=== PATIENT | female | born 1980 | race Caucasian/White ===

== ENCOUNTER 2017-12-13 10:46 | Day surgery (SDC) | payer MEDICAID ==
--- NOTE | 2017-12-07 15:20 | PREOP HISTORY & PHYSICAL ---
DATE OF SERVICE: 12/07/2017 Physician: Sheyla Brenner DO ANTICIPATED ADMISSION: 12/13/2017 IDENTIFICATION: This is a 37-year-old, G2, P2-0-0-2. HISTORY OF PRESENT ILLNESS: The patient is well known to me and underwent a total abdominal hysterectomy with right salpingo-oophorectomy in 2012 secondary to chronic pelvic pain. Pathology showed that she had both endometriosis and adenomyosis. In the more recent past, the patient has been experiencing intermittent abdominal pain of unclear etiology since 2016. The patient states that her pain is mainly in the left lower quadrant and is worsened with activity. She also feels that she has been having another type of pain in the left lower quadrant that trying to "claw its way out." The pain in her pelvic area is described as throbbing and pulsating. She does now, today, notice a cramping-like sensation in her right lower quadrant. Her pain was so bad that on 11/07/[address] [facility] due to the pain. Workup was essentially unremarkable. They did see a 2.1 x 1.6 x 2.1 cm simple cyst on the left adnexa. I discussed with the patient that most likely her pain is due to either endometriosis or adhesions. I discussed with the patient the risks, benefits, alternatives, indications, expectations of diagnostic laparoscopy, possible lysis of adhesion, and ablation or excision of endometrial implants. The patient understood that there were risks of hemorrhage, infection, damage to surrounding organs, as well as the risk of anesthesia. Should heavy bleeding occur around the adnexa, an oophorectomy may need to be performed. However, with an oophorectomy, the patient would be in surgical menopause. Furthermore, if the case was too technically difficult, she may have to have laparoscopy abandoned and proceed to a mini laparotomy. Finally, the patient understands that although surgery for lysis of adhesions or ablation of endometrial implants may be performed, she may not feel any relief of her pain. After all the patient's questions were answered to her satisfaction, she verbalized her desire to proceed with surgery. Consent forms have been signed. The patient otherwise is doing well. She denies any nausea, vomiting, fevers, chills, diarrhea, or constipation. PAST MEDICAL HISTORY 1. Obesity. 2. Asthma. 3. Endometriosis. 4. Arthritis. 5. Bilateral carpal tunnel. 6. Shoulder pain. PAST SURGICAL HISTORY 1. Laminectomy x2 at L4-L5. 2. Bilateral tubal sterilization via laparoscopy. 3. On 07/03/2013, total abdominal hysterectomy, right salpingo-oophorectomy, revealing adenomyosis, as well as endometriosis. ALLERGIES 1. MAINLY TO MORPHINE, IN WHICH SHE HAS HIVES. 2. DILAUDID IN WHICH SHE HAS A HEADACHE AND GRINDS HER TEETH. 3. SHE DOES HAVE SOME SIDE EFFECTS WITH HYDROCODONE AND OXYCODONE WITH RESPECT TO UPSET STOMACH. MEDICATIONS 1. Vitamin D. 2. Natalie 180. 3. Ibuprofen. 4. Vistaril 25. 5. Cyclobenzaprine 5 mg. 6. Pyridium. 7. Amitriptyline 10 mg. 8. Albuterol 90 mcg. SOCIAL HISTORY: She denies any current tobacco use, but she did quit a 15-year history of tobacco use in 2014. The patient does consume alcohol on a rare basis, and she does consume marijuana on an occasional basis. Significant other is Matt; and she has sons Damian and Dmitri. PAST OBSTETRICAL HISTORY: Two deliveries. PAST GYNECOLOGICAL HISTORY: Status post bilateral tubal sterilization. Pap smears have been within normal limits. She does recall a history of gonorrhea, with chronic pelvic pain since February 2009. The patient has been on multiple doses of Depot Lupron in order to work up her chronic pelvic pain prior to her hysterectomy. Her most recent Pap smear on 04/01/2011 was negative for the Pap smear, as well as the high risk HPV probe. Pap smears on 02/09/2009, 2009 and 06/18/2010 have all been nil. The patient currently does not have any PMS symptoms with ovulation. FAMILY HISTORY: There is a significant maternal and paternal history of breast carcinoma. She does not know much history, but is only aware that her paternal grandmother was diagnosed with breast cancer in her 80s. REVIEW OF SYSTEMS: Negative unless otherwise stated. PHYSICAL EXAMINATION VITAL SIGNS: Height is 69 inches. Blood pressure initially 148/100 and then 122/96. BMI is 35.4. GENERAL: The patient is a well-developed, well-nourished, female, in no apparent distress. She is alert and oriented x3. The patient is very pleasant to speak to. The patient is very reasonable. HEENT: Within normal limits. She does wear glasses. CARDIOVASCULAR: Rate is regular. No murmurs or rubs. PULMONARY: Lungs are clear to auscultation bilaterally. ABDOMEN: Soft, nontender. No masses, rebound, rigidity or guarding. She does have a well healed Pfannenstiel skin incision. There is a faint scar in her left lower quadrant from her tubal sterilization. DIAGNOSTIC DATA: The 11/07/2017 [facility] pelvic ultrasound revealed a surgically absent uterus, right adnexa, absent left adnexa measuring 3.9 x 2.3 x 2.6 cm. Again, there is a 2.1 x 1.6 x 2.1 cm simple cyst. White count is 8.8, hemoglobin and hematocrit of 14.8 and 43.1 respectively, platelets 272. Creatinine 0.7. Most recent CT abdomen and pelvis on 07/29/2013 for left flank pain. She has a left ovarian cyst measuring 4.5 x 3.7 cm. No extraluminal fluid collections are identified in the abdomen or pelvis. Subcutaneous fluid collection seen at the pelvis at the site of prior incision. This measures 13.8 x 3.8 x 5.9 cm and probably represents postoperative hematoma or seroma. Degenerative changes seen in the lumbar spine, especially at L4 to L5 and L5 to S1. ASSESSMENT 1. A 37-year-old G2, P2-0-0-2. 2. Chronic pelvic pain. 3. Significant history of nausea and vomiting during postop recovery. PLAN 1. We will proceed to a 12/13/2017 diagnostic laparoscopy with possible lysis of adhesions and removal of endometrial implant. 2. Plan to give the patient scopolamine 1.5 mg x1 behind her ear as soon as she presents to Med/Surg. 3. Postoperative medications have been given to her specifically for Zofran 4 mg, sent to [facility] in [place], [place], as well as a handwritten prescription for oxycodone 5 mg #20 tablets. 4. The patient is to see me at [facility] in 2 weeks for a routine postoperative visit. cc: SINAI Hurd TD: 12/07/2017 14:55 [facility]
[~2017-12-13 10:46] MED LIST: CELECOXIB 100 MG CAPSULE PO ONE; SCOPOLAMINE PATCH TOP ONE
[2017-12-13 10:59] VITALS: BP 122/70
[2017-12-13] MEDS ORDERED: LACTATED RINGERS 1,000 ML IV ONE ×4 (11:11→15:29)
[2017-12-13] MEDS ORDERED: LIDOCAINE MPF 1%-EPI 1:200000 30 ML VIAL ONE (12:25)
[2017-12-13] MEDS ORDERED: BUPIVACAINE 0.5% PF 10 ML VIAL ONE (12:49)
[2017-12-13] MEDS ORDERED: LIDOCAINE-MPF 2% 5 ML VIAL IM ONE (13:10)
[2017-12-13] MEDS ORDERED: KETOROLAC 30 MG/ML VIAL IVP ONE (13:10)
[2017-12-13] MEDS ORDERED: ACETAMINOPHEN 1,000 MG/100 ML 100 ML IV ONE (13:10)
[2017-12-13] MEDS ORDERED: fentaNYL 250 MCG/5 ML VIAL IVP ONE (13:10)
[2017-12-13] MEDS ORDERED: ONDANSETRON 4 MG/2 ML VIAL IVP ONE (13:10)
[2017-12-13] MEDS ORDERED: MIDAZOLAM 2 MG/2 ML VIAL IVP ONE (13:10)
[2017-12-13] MEDS ORDERED: ROCURONIUM 50 MG/5 ML VIAL IVP ONE (13:10)
[2017-12-13] MEDS ORDERED: DEXAMETHASONE 4 MG/ML VIAL IVP ONE (13:10)
[2017-12-13] MEDS ORDERED: PROPOFOL 200 MG/20 ML VIAL IVP ONE (13:10)
[2017-12-13] MEDS ORDERED: LIDOCAINE 1%-EPI 1:100000 20 ML MDV SUBQ ONE (14:54)
[2017-12-13] MEDS ORDERED: GENTAMICIN 80 MG/2 ML VIAL ONE (14:56)
[2017-12-13] MEDS ORDERED: GENTAMICIN 80 MG/2 ML VIAL IL ONE (14:58)
[2017-12-13] MEDS ORDERED: BUPIVACAINE 0.5% PF 10 ML VIAL IM ONE (14:58)
--- NOTE | 2017-12-13 15:40 | OPERATIVE REPORT ---
Operative Report - General Planned Procedure: Diagnostic laparoscopy, probable lysis of adhesions, possible left oophorec Pre-Op Diagnosis: LLQ pain; status post AMBREEN RSO for endometriosis/adenomyosis Procedure Performed: Diagnostic laparoscopy, appendectomy, lysis of extensive adhesions, cystoscopy Post Op Diagnosis: Extensive & dense abdominal and pelvic adhesions; edematous appendix; - Procedure Note Primary Surgeon: Luis Collier MD Secondary Surgeon: Luis Rivera MD Anesthesia Provider: Jeremie Puri, certified nurse image consultant Anesthesia Technique: General ET tube Pathology: Appendix sent IV Fluids (mL): 2,400 Estimated Blood Loss (mL): 70 Urine Output (mL): 70 Drain/Tube Type: Other (Finn) Complications: None
[2017-12-13] MEDS ORDERED: SODIUM CHLORIDE 0.9% 50 ML IV ONE ×2 (16:14→16:37)
[2017-12-13] MEDS ORDERED: ONDANSETRON 4 MG/2 ML VIAL ONE (16:14)
[2017-12-13] MEDS ORDERED: PROMETHAZINE 25 MG/1 ML VIAL ONE ×2 (16:21→16:42)
[2017-12-13] MEDS ORDERED: ACETAMINOPHEN 1,000 MG/100 ML 0 ML IV ONE (16:36)
[2017-12-13] MEDS ORDERED: ONDANSETRON 4 MG/2 ML VIAL IVP PRN (18:19)
[2017-12-13] MEDS: ACETAMINOPHEN 1,000 MG/100 ML 100 ML IV SCH (19:15)
--- NOTE | 2017-12-13 19:35 | OPERATIVE REPORT ---
DATE OF SERVICE: 12/13/2017 Physician: Luis Collier MD PREOPERATIVE DIAGNOSES 1. Left lower quadrant pain predominant, right lower quadrant pain and bladder pain with urgency. 2. History of endometriosis. 3. Status post total abdominal hysterectomy, right salpingo-oophorectomy. 4. Morbid obesity. POSTOPERATIVE DIAGNOSES 1. Extensive and dense abdominal and pelvic adhesions involving small bowel, large bowel, pelvic sidewall and anterior abdominal wall. 2. Edematous appendix, suspicious for endometriosis. 3. No endometriosis found. NAME OF PROCEDURE 1. Diagnostic laparoscopy. 2. Appendectomy. 3. Lysis of extensive and dense adhesions of the abdomen and pelvis. 4. Cystoscopy. SURGEON: Luis Collier MD, FACOG SECOND SURGEON: Luis Hurt MD, FACOG CLOTH BRUSHING AND SUEDING SUPERVISOR 1. Alka Puri, Certified Nurse Bowling Alley Mechanic. 2. Ester Proctor, Certified Nurse Bowling Alley Mechanic. ANESTHESIA TYPE: General with ET tube. TOTAL BLOOD LOSS: 70 mL. SPECIMENS: None. TOTAL IV FLUIDS: 2400 mL. URINE OUTPUT: 400 mL, clear. FINDINGS: The patient is morbidly obese with a small pannus and a short waist line. There is a well-healed transverse hysterectomy incision. External genitalia have no apparent lesions. No abnormal changes of BUS area. There is no significant prolapse. Cervix and uterus are surgically absent. Rectovaginal exam was done that found no rectovaginal nodules. There may have been a small enterocele. Laparoscopy finds a dense curtain of omental & bowel adhesions, extending down below the hysterectomy scar. There were only 2 adhesion-free areas above the symphysis and slightly right of the midline and the Lateral left lower quadrant. The adhesions were quite dense and involve the rectal colon and sigmoid colon. The colon was pasted against the left pelvic sidewall. This mass of adhesions was explored to find the left ovary, which was not uncovered. There were fatty adhesions on the right side as well that extended up to the abdominal wall. In essence, the abdomen was socked in by a mat of anterior adhesions. Some adhesions tacked small bowel onto the left pelvic brim. The appendix was edematous and bloated in appearance. There was no inflammation. Appearance was suspicious for adenomatous change or endometriosis, prompting removal. The upper abdomen above the umbilicus was fairly adhesion-free. The cul-de-sac, anterior compartment and ovarian fossae were inspected and no endometriosis was found. Cystoscopic inspection of the bladder finds 2 open ureters. There is ecchymosis on the bladder dome anteriorly, probably secondary to the lysis of the extensive adhesions that were adhered to it. There were no obvious bladder punctures or tumors. Photos were taken. TECHNIQUE: Prior to the surgery, I met the patient and her in same-day surgery. We discussed her symptoms, and I marked the areas that were painful to her with a marking pen. She did have moderate tenderness in LLQ & less so RLQ, as well as the bladder. We reviewed the risks and benefits of surgery, inclusive of blood loss, transfusion, damage to intestines, urinary tract, inability to fix a diagnosis and anesthesia reaction and on rare occasions, . All questions were answered. We added cystoscopy because of the bladder tenderness and her complaints of bladder pain on emptying and urgency. The patient was brought to the operating room and placed in the supine position on the OR table. She was uneventfully induced and intubated. She was then moved to the low dorsal lithotomy position on [facility]. Exam under anesthesia was accomplished. She was prepped and draped in the customary sterile fashion. Timeout briefing was done per protocol. A small incision was placed under the umbilical skin fold, and under direct visualization, a 5 mm Visiport trocar was placed into the abdomen. The abdominal wall was very stiff and fibrous. The peritoneal cavity was insufflated with CO2 gas at 12 mm of pressure. Examination found a wall of adhesions and a small space in which the scope was advanced down to the area of the pubes. There was a small adhesion-free patch slightly above the pubic bone. A 5 mm trocar was then placed under direct visualization. Scar tissue was very dense and the trocar did not exit, but rather was in the fatty tissue and adhesions. A second trocar then was placed slightly medial to this under direct visualization. This trocar gave functional access but abutted the inferior portion of the adhesion mat. In a tedious fashion, the lower portion of the anterior wall adhesions were lysed with LigaSure & metzenbaum scissors. Enough space was developed to visualize the left lower quadrant, an adhesion-free space was identified. Under direct visualization, a bariatric 5 mm trocar was placed. This was used for visualization. Using a LigaSure, the lower portion of the adhesion mat was lysed away from the abdominal wall. The previous midline trocar fell away from the fatty adhesions and had been preperitoneal. Trocar was removed. Next, a bariatric right lower quadrant 5 mm trocar was placed. We continued lysis of adhesions until the anterior mat was completely mobilized. Attention then turned to the left ovarian fossa and colon. The colon was matted against the pelvic sidewall. We placed the colon on tension, and using a combination of LigaSure and laparoscopic Metzenbaum scissors, the colon was mobilized carefully. For a portion against the left pelvic sidewall, the dissection was retroperitoneal. There was a great deal of preperitoneal & mesenteric fat. We mobilized the colon completely but could not find the left ovary. We believed it was contained in the mesenteric fat of the sigmoid colon. The appendix was visualized and appearance prompted removal. The right lower quadrant 5 mm port was exchanged for a 10 mm. A laparoscopic stapler 45 mm was inserted into the abdomen. The base of the appendix was identified, clamped, and the stapler fired. To include the mesentery, a second firing of the stapler was necessary. Using catch bag, the appendix was removed. We rinsed the area of dissection and appendectomy several times to ensure that it was intact and hemostatically secure. The abdominal cavity was doubly lavaged with warm normal saline and clots evacuated. All operative sites were inspected and secured. We chose not to continue dissection into the mesentery of the rectal and sigmoid colon due to dangers of inadvertently transecting mesenteric vessels. The 10 mm right lower quadrant port was closed with a Ralph Little laparoscopic closure device using 0 Vicryl. The abdomen was instilled with 500 mL of warm normal saline with 80 mg of gentamicin and 10 mg of Marcaine. All excess gas was then vented. The trocar sleeves were pulled under direct visualization. Skin was closed with subcuticular stitches of 4-0 Monocryl and dressed with Dermabond. At this point, we turned to cystoscopy. A 70-degree cystoscopic lens was used. The bladder was insufflated with sterile normal saline and photographed. There were no lesions requiring biopsy. At this point, the bladder was drained and Finn replaced. The patient received 30 mg of Toradol. She was aroused from general anesthesia and taken to the recovery room in stable condition. Intraoperative events were reviewed with the patient and her family. For pain & nausea control, she will remain overnight. Do not anticipate the patient to stay more than 72 hours. This is not an observation, but extended stay. TD: 12/13/2017 19:34 [email or web address]
[2017-12-13] MEDS: KETOROLAC 30 MG/ML VIAL IVP SCH (20:00)
[2017-12-13] MEDS ORDERED: AMITRIPTYLINE 10 MG TABLET PO SCH (23:45)
[2017-12-14] MEDS: ACETAMINOPHEN 1,000 MG/100 ML 100 ML IV SCH ×2 (00:10→06:54)
[2017-12-14] MEDS ORDERED: SODIUM CHLORIDE FLUSH 0.9% 10 ML SYRINGE ONE ×6 (00:13→11:48)
--- NOTE | 2017-12-14 02:15 | DISCHARGE SUMMARY ---
Physician: Luis Collier MD DATE OF ADMISSION: 12/13/2017 DATE OF DISCHARGE: 12/14/2017 SUMMARY DIAGNOSES 1. Extensive and dense abdominal and pelvic adhesions, including small bowel, large bowel, pelvic sidewall, and anterior abdominal wall. 2. History of endometriosis. 3. Status post abdominal hysterectomy, right salpingo-oophorectomy. 4. Morbid obesity. 5. No endometriosis found. PROCEDURES 1. Diagnostic laparoscopy. 2. Appendectomy. 3. Lysis of extensive and dense adhesions of the abdomen and pelvis. 4. Cystoscopy. COMPLICATIONS: None. HISTORY: Patient has predominantly left lower quadrant pain with some right upper quadrant and bladder pain as well. She has extensive surgical history as outlined in Dr. Brenner's admission H and P. At the time of admission, I reviewed the H and P, patient's symptoms, and reexamined the patient in preanesthesia holding area. Cystoscopy was added to the operative consent. HOSPITAL COURSE: Patient underwent her diagnostic laparoscopy using bariatric instruments. The abdominal wall was very stiff, and there was a thick and dense mat of adhesions in the lower abdomen. Methodical method was used to eventually lyse these adhesions. Left ovary was never clearly visualized. We dissected the rectal and sigmoid colon off of the left pelvic side wall. I believed the ovary to be buried in mesenteric fat. Cystoscopy found ecchymosis from extensive dissection but no openings. Both ureters worked well. Total blood loss was 70 mL, and the patient went to the recovery room in stable condition. In Recovery, she began to retch, which accelerated abdominal pain. She began a retch and pain cycle that was difficult to break. A combination of Zofran and Compazine and Phenergan were used to eventually control the retching. She is very sensitive to narcotics, and so IV acetaminophen and Toradol were used. She was moved to extended stay observation. Once in her room, her nausea and pain gradually subsided. She had her Finn removed.She received supportive care. Patient's diet was gradually advanced through the day. At the time of discharge, complete wound care, followup, and warning sign instructions were given. DISCHARGE MEDICATIONS 1. Motrin 600 mg every 6 hours. 2. Hydrocodone 5 mg every 4 hours p.r.n. breakthrough pain. 3. Colace 250 mg b.i.d. 4. The patient will resume her normal medications, inclusive of amitriptyline. TD: 12/14/2017 02:14 MTDOsmel
[2017-12-14] MEDS: KETOROLAC 30 MG/ML VIAL IVP SCH ×2 (02:35→11:26)
[2017-12-14] MEDS: oxyCOD/ACETAMIN 5 MG/325 MG TABLET PO PRN ×3 (03:54→12:21)
--- NOTE | 2017-12-14 12:34 | Discharge Plan ---
Discharge Plan Disposition: 01 Home, Self Care Condition: Stable Diet: Regular Activity Restrictions: Activity as Tolerated Shower Restrictions: No Driving Restrictions: No No Smoking: If you smoke, Please STOP! Call for help.
== END 2017-12-14 13:45 | disposition home or self-care (01) ==
LOC: SDS 10:46 → OBS 16:30 → SDS 12-14 13:45
PROVIDERS: ATTEND Obstetrics & Gynecology
PROC: 0TJB8ZZ Inspection of Bladder, Via Natural or Artificial Opening Endoscopic (ICD-10-PCS; 2017-12-13)
PROC: 0DTJ4ZZ Resection of Appendix, Percutaneous Endoscopic Approach (ICD-10-PCS; principal; 2017-12-13 11:45)
DX: R10.31 Right lower quadrant pain (principal); K66.0 Peritoneal adhesions (postprocedural) (postinfection); R10.32 Left lower quadrant pain; E66.01 Morbid (severe) obesity due to excess calories; J45.909 Unspecified asthma, uncomplicated; Z68.35 Body mass index [BMI] 35.0-35.9, adult
CPT/HCPCS: 44970; 49329; 52000; 88304; A9270; J0131; J1580; J3010; J3490; J7120

== ENCOUNTER 2018-01-04 12:58 | Outpatient (CLI) | payer MEDICAID ==
--- NOTE | 2018-01-04 17:19 | Ultrasound Report ---
RIGHT BREAST ULTRASOUND: 01/04/2018 CLINICAL INDICATION: Palpable abnormality outer right breast. TECHNIQUE: Real-time scanning was performed with electronics parts sales representative static images obtained. FINDINGS: Ultrasound of the palpable abnormality identified by the patient was performed. At this site, there is a 1.8 x 1.5 x 0.7 cm lipoma. No sonographically suspicious findings are seen. IMPRESSION: SIMPLE LIPOMA, ACCOUNTING FOR THE PALPABLE ABNORMALITY. RECOMMENDATION: Routine annual screening, to commence at age 40, unless otherwise clinically indicated. BIRADS category 2 benign findings. TD: 01/04/2018 17:17
--- NOTE | 2018-01-04 17:25 | Mammography Report ---
DIAGNOSTIC BILATERAL MAMMOGRAM: 01/04/2018 CLINICAL INDICATION: A 37-year-old with palpable abnormality right breast. COMPARISON: 02/27/2014 FINDINGS: Bilateral CC and MLO views, right true lateral view. A marker was placed at the site of palpable abnormality identified by the patient. FINDINGS: The breasts again demonstrate scattered fibroglandular densities bilaterally. A sebaceous cyst is again noted in the right lower outer posterior breast. No mammographic abnormality is appreciated at the site of palpable abnormality in the right upper outer central breast. No suspicious masses, clustered microcalcifications, or regions of architectural distortion are identified. Please also refer to right breast ultrasound of the same day. IMPRESSION: BENIGN FINDINGS. RECOMMENDATION: Routine annual screening to commence at age 40, unless otherwise clinically indicated. BIRADS CATEGORY 2 BENIGN FINDINGS. STANDARD QUALIFYING STATEMENTS: 1. This examination was reviewed with the aid of Computer-Aided Detection (CAD). 2. A negative or benign imaging report should not delay biopsy if clinically suspicious findings are present. Consider surgical consultation if warranted. More than 5% of cancers are not identified by imaging. 3. Dense breasts may obscure an underlying neoplasm. TD: 01/04/2018 17:23
== END 2018-01-04 12:59 | disposition home or self-care (01) ==
LOC: DI 12:58
PROVIDERS: ATTEND Obstetrics & Gynecology
DX: D17.1 Benign lipomatous neoplasm of skin and subcutaneous tissue of trunk (principal)
CPT/HCPCS: 76642; 77066

== ENCOUNTER 2018-02-05 15:22 | Emergency (ER) | payer MEDICAID ==
[2018-02-05 16:14] LABS: BILIRUBIN,URINE NEGATIVE (NEGATIVE); CLARITY,URINE CLEAR (CLEAR); GLUCOSE, URINE (UA) NEGATIVE (NEGATIVE); KETONES,URINE (UA) NEGATIVE (NEGATIVE); LEUKOCYTE ESTERASE, URINE NEGATIVE (NEGATIVE); NITRITE,URINE NEGATIVE (NEGATIVE); OCCULT BLOOD,URINE TRACE-INTA (NEGATIVE); PROTEIN,URINE NEGATIVE (NEGATIVE); UROBILINOGEN,URINE 0.2 (NORMAL) E.U./dL (NORMAL)
[2018-02-05 16:57] LABS: BASOPHILS # (AUTO) 0.1 10^3/uL (0.0-0.1); BASOPHILS % (AUTO) 0.8 %; EOSINOPHILS # (AUTO) 0.3 10^3/uL (0.0-0.7); EOSINOPHILS % (AUTO) 2.7 %; HGB - HEMOGLOBIN 14.8 g/dL (12.0-16.0); LYMPHOCYTES # (AUTO) 2.7 10^3/uL (1.5-3.5); LYMPHOCYTES % (AUTO) 25.6 %; MEAN CORPUSCULAR HEMOGLOBIN 30.9 pg (27.0-31.0); MEAN CORPUSCULAR HGB CONC 33.7 g/dL (32.0-36.0); MEAN CORPUSCULAR VOLUME 91.7 fL (81.0-99.0); MEAN PLATELET VOLUME 7.7 fL (7.9-10.8); MONOCYTES # (AUTO) 0.6 10^3/uL (0.0-1.0); MONOCYTES % (AUTO) 5.4 %; NEUTROPHILS # (AUTO) 6.9 10^3/uL (1.5-6.6); NEUTROPHILS % (AUTO) 65.5 %; PLT - PLATELET COUNT 313 10^3/uL (130-450); RED BLOOD COUNT 4.79 10^6/uL (4.20-5.40); RED CELL DISTRIBUTION WIDTH 13.2 % (12.0-15.0); WHITE BLOOD COUNT 10.6 x10^3/uL (4.8-10.8)
--- NOTE | 2018-02-05 16:59 | ED Physician Documentation ---
PD HPI ABD PAIN - Stated complaint Stated Complaint: ABD PX - Chief complaint Chief Complaint: Abd Pain - History obtained from History obtained from: Patient - History of Present Illness Timing - onset: Last night Timing - duration: Days (1) Timing - details: Abrupt onset, Still present Quality: Aching, Sharp, Pain Location: LLQ Radiation: No: Lower back, Left flank Improved by: No: Eating, Position Worsened by: Moving, Position, Palpation. No: Eating Associated symptoms: Nausea, Vomiting. No: Fever Similar symptoms before: No diagnosis Recently seen: Surgery (laparoscopy 2 months ago for similar pains and had a lot of adhesions. These were taken down and did tear loose some structures) Review of Systems Constitutional: denies: Fever, Chills, Myalgias Nose: denies: Rhinorrhea / runny nose, Congestion Throat: denies: Sore throat Respiratory: denies: Cough : reports: Other (pelvic pains left lower for months) PD PAST MEDICAL HISTORY - Past Medical History Cardiovascular: None Respiratory: Asthma Endocrine/Autoimmune: None GI: GERD : Kidney stones HEENT: Chronic vision loss, Chronic hearing loss Psych: Depression, Anxiety, Panic attacks, Claustrophobia Musculoskeletal: Osteoarthritis, Fibromyalgia, Scoliosis, Chronic back pain, Other Derm: None - Past Surgical History Past Surgical History: Yes General: Other Ortho: 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, Hysterectomy, Oophrectomy HEENT: Myringotomy (tubes), Tonsil/Adenoidectomy - Present Medications Home Medications: Ambulatory Orders Medication Instructions Recorded Confirmed Albuterol Sulfate [Proair Hfa 1 - 2 puffs INH Q4H PRN 12/07/17 12/13/17 Inhaler] Amitriptyline HCl 30 mg PO DAILY PM 12/07/17 12/13/17 Cyclobenzaprine [Flexeril] 10 mg PO DAILY 12/13/17 12/13/17 Dexamethasone [Decadron] 4 mg PO DAILY #5 tablet 02/05/18 Naproxen 375 mg PO BID #20 tablet 02/05/18 Ondansetron Odt [Zofran] 4 mg TL Q6H PRN #15 tablet 02/05/18 oxyCODONE [Roxicodone] 5 mg PO Q4-6H PRN #20 tablet 02/05/18 - Allergies Allergies/Adverse Reactions: Allergies Allergy/AdvReac Type Severity Reaction Status Date / Time morphine AdvReac Hives Verified 02/05/18 15:32 - Social History Does the pt smoke?: No Smoking Status: Never smoker Does the pt drink ETOH?: Yes Does the pt have substance abuse?: No - Immunizations Immunizations are current?: No Immunizations: TDAP >10years/unknown - POLST Patient has POLST: No PD ED PE NORMAL - Vitals Vital signs reviewed: Yes - General General: Alert and oriented X 3, Well developed/nourished - HEENT HEENT: Pharynx benign - Neck Neck: Supple, no meningeal sign, No bony TTP, No adenopathy, Thyroid normal, No bruit - Cardiac Cardiac: RRR, No murmur - Respiratory Respiratory: Clear bilaterally - Derm Derm: Normal color, Warm and dry, No rash - Extremities Extremities: No deformity, No tenderness to palpate, Normal ROM s pain, No edema , No calf tenderness / cord - Neuro Neuro: Alert and oriented X 3, No motor deficit, Normal speech Results - Vitals Vitals: Oxygen O2 Source Room air - Labs Labs: Laboratory Tests 02/05/18 02/05/18 02/05/18 16:00 16:15 16:15 WBC 10.6 RBC 4.79 Hgb 14.8 Hct 44.0 MCV 91.7 MCH 30.9 MCHC 33.7 RDW 13.2 Plt Count 313 MPV 7.7 L Neut # 6.9 H Lymph # 2.7 [place] # 0.6 Eos # 0.3 Baso # 0.1 Absolute Nucleated RBC 0.01 Nucleated RBC % 0.1 Sodium 137 Potassium 3.8 Chloride 101 Carbon Dioxide 26 Anion Gap 10.0 BUN 11 Creatinine 0.8 Estimated GFR (MDRD) 81 L Glucose 88 Calcium 9.1 Total Bilirubin 0.7 AST 26 ALT 22 Alkaline Phosphatase 50 Total Protein 7.9 Albumin 4.5 Globulin 3.4 Albumin/Globulin Ratio 1.3 Lipase 23 Urine Color YELLOW Urine Clarity CLEAR Urine pH 5.0 Ur Specific [place] 1.010 Urine Protein NEGATIVE Urine Glucose (UA) NEGATIVE Urine Ketones NEGATIVE Urine Occult Blood TRACE-INTA Urine Nitrite NEGATIVE Urine Bilirubin NEGATIVE Urine Urobilinogen 0.2 (NORMAL) Ur Leukocyte Esterase NEGATIVE Ur Microscopic Review NOT INDICATED Urine Culture Comments NOT INDICATED PD MEDICAL DECISION MAKING - ED course Complexity details: reviewed old records (recent laroscopy with lysis of adhesions, but long enough ago to really out of typical post op infections/ problems. No signs of infection. CT showing a lot of adhesions. ), re-evaluated patient, considered differential, d/w patient Departure - Departure Disposition: 01 Home, Self Care Clinical Impression: Abdominal pain, left lower quadrant, Lower abdominal adhesions Condition: Stable Record reviewed to determine appropriate education?: Yes Instructions: ED Abdominal Pain Unkn Cause Follow-Up: Chiquita Alfaro PA-C [Primary Care Provider] - Sheyla Brenner DO [Provider Admit Priv/Credential] - Prescriptions: Dexamethasone [Decadron] 4 mg PO DAILY #5 tablet Naproxen 375 mg PO BID #20 tablet Ondansetron Odt [Zofran] 4 mg TL Q6H PRN #15 tablet PRN Reason: Nausea / Vomiting oxyCODONE [Roxicodone] 5 mg PO Q4-6H PRN #20 tablet PRN Reason: Pain Comments: Presume the pain your having is from adhesions and inflammation similar to what they found on the scope a month and a half ago. Use naproxen 375 mg twice daily for 7-10 days. Decadron also for inflammation daily for 5 days. Add ondansetron if needed for nausea and oxycodone for pain. Follow-up with Dr. Stoner, call this week for an appointment. Discharge Date/Time: 02/05/18 19:21
[2018-02-05 17:09] LABS: ALBUMIN 4.5 g/dL (3.2-5.5); ALBUMIN/GLOBULIN RATIO 1.3 (1.0-2.2); BILIRUBIN,TOTAL 0.7 mg/dL (0.2-1.0); CALCIUM 9.1 mg/dL (8.5-10.3); CREATININE 0.8 mg/dL (0.4-1.0); TOTAL PROTEIN 7.9 g/dL (6.7-8.2)
[2018-02-05] MEDS ORDERED: KETOROLAC 60 MG/2 ML VIAL IVP STA (17:22)
[2018-02-05] MEDS ORDERED: oxyCODONE 5 MG TABLET PO STA (17:22)
[2018-02-05] MEDS ORDERED: fentaNYL 100 MCG/2 ML VIAL IVP STA (17:22)
[2018-02-05] MEDS ORDERED: DEXAMETHASONE 10 MG/ML VIAL IVP STA (17:22)
[2018-02-05 19:13] VITALS: BP 120/85
== END 2018-02-05 19:21 | disposition home or self-care (01) ==
LOC: ED 15:22
DX: R10.32 Left lower quadrant pain (principal); R10.2 Pelvic and perineal pain; K66.0 Peritoneal adhesions (postprocedural) (postinfection); K21.9 Gastro-esophageal reflux disease without esophagitis; J45.909 Unspecified asthma, uncomplicated; M79.7 Fibromyalgia; M19.90 Unspecified osteoarthritis, unspecified site
CPT/HCPCS: 36415; 80053; 81003; 83690; 85025; 96374; 96375; 99284; A9270; 81001; 87086

== ENCOUNTER 2018-04-09 19:12 | Emergency (ER) | payer MEDICAID ==
[2018-04-09 19:23] VITALS: BP 137/78
[2018-04-09 19:36] LABS: BILIRUBIN,URINE NEGATIVE (NEGATIVE); GLUCOSE, URINE (UA) NEGATIVE (NEGATIVE); KETONES,URINE (UA) NEGATIVE (NEGATIVE); LEUKOCYTE ESTERASE, URINE NEGATIVE (NEGATIVE); NITRITE,URINE NEGATIVE (NEGATIVE); OCCULT BLOOD,URINE TRACE-INTA (NEGATIVE); PROTEIN,URINE NEGATIVE (NEGATIVE); UROBILINOGEN,URINE 0.2 (NORMAL) E.U./dL (NORMAL)
[2018-04-09 19:39] LABS: CLARITY,URINE CLEAR (CLEAR); HCG UR QUAL NEGATIVE
[2018-04-09] MEDS ORDERED: PHENAZOPYRIDINE 100 MG TABLET PO STA (21:08)
[2018-04-09] MEDS ORDERED: NITROFURANTOIN MACRO 100 MG CAPSULE PO STA (21:08)
--- NOTE | 2018-04-09 21:11 | ED Physician Documentation ---
History of Present Illness - Stated complaint Stated Complaint: FEMALE /BACK PX - Chief complaint Chief Complaint: General - History obtained from History obtained from: Patient, Family - History of Present Illness Timing: How many days ago (several) Pain level max: 6 Pain level now: 4 Improved by: pyridium Worsened by: Urination - Additonal information Additional information: Patient is a 38-year-old female who presents to the emergency department with a potential urinary tract infection. She states she has dysuria, frequency, intermittently for the past several days. Took Pyridium yesterday which helped. Denies any vaginal bleeding or discharge. No change in sexual partners. No STD exposure. Review of Systems Constitutional: denies: Fever, Chills Nose: denies: Rhinorrhea / runny nose, Congestion Throat: denies: Sore throat Cardiac: denies: Chest pain / pressure Respiratory: denies: Cough GI: denies: Abdominal Pain, Nausea, Vomiting, Diarrhea : reports: Dysuria, Frequency, Hesitancy. denies: Discharge Skin: denies: Rash Musculoskeletal: reports: Back pain (low back ache). 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, Hysterectomy, Oophrectomy HEENT: Myringotomy (tubes), Tonsil/Adenoidectomy - Present Medications Home Medications: Ambulatory Orders Medication Instructions Recorded Confirmed Amitriptyline HCl 30 mg PO DAILY PM 12/07/17 12/13/17 oxyCODONE [Roxicodone] 5 mg PO Q4-6H PRN #20 tablet 02/05/18 Nitrofurantoin Monohyd/M-Cryst 100 mg PO BID #10 capsule 04/09/18 [Macrobid 100 mg Capsule] Phenazopyridine HCl [Pyridium] 200 mg PO TID PRN #6 tablet 04/09/18 - Allergies Allergies/Adverse Reactions: Allergies Allergy/AdvReac Type Severity Reaction Status Date / Time morphine AdvReac Hives Verified 04/09/18 19:21 - Social History Does the pt smoke?: No Smoking Status: Never smoker Does the pt drink ETOH?: Yes Does the pt have substance abuse?: No - Immunizations Immunizations are current?: No Immunizations: TDAP >10years/unknown - POLST Patient has POLST: No PD ED PE NORMAL - Vitals Vital signs reviewed: Yes - General General: Alert and oriented X 3 - HEENT HEENT: Moist mucous membranes - Neck Neck: Supple, no meningeal sign - Cardiac Cardiac: RRR - Respiratory Respiratory: No respiratory distress, Clear bilaterally - Abdomen Abdomen: Soft, Non tender, Non distended - Female Female : Pt declined - Back Back: No CVA TTP, No spinal TTP - Derm Derm: Warm and dry - Neuro Neuro: Alert and oriented X 3 - Psych Psych: Normal mood, Normal affect Results - Vitals Vitals: Vital Signs - 24 hr 04/09/18 04/09/18 19:19 21:20 Temperature 36.4 C L Heart Rate 84 Respiratory 18 17 Rate Blood Pressure 137/78 H O2 Saturation 100 98 Oxygen O2 Source Room air - Labs Labs: Laboratory Tests 04/09/18 19:23 Urine Color YELLOW Urine Clarity CLEAR Urine pH 6.0 Ur Specific [place] 1.010 Urine Protein NEGATIVE Urine Glucose (UA) NEGATIVE Urine Ketones NEGATIVE Urine Occult Blood TRACE-INTA Urine Nitrite NEGATIVE Urine Bilirubin NEGATIVE Urine Urobilinogen 0.2 (NORMAL) Ur Leukocyte Esterase NEGATIVE Ur Microscopic Review NOT INDICATED Urine Culture Comments NOT INDICATED Urine HCG, Qual NEGATIVE PD MEDICAL DECISION MAKING - ED course Complexity details: reviewed results, re-evaluated patient, considered differential, d/w patient, d/w family ED course: Patient is a 38-year-old female who presents to the emergency department with symptoms of UTI. Her urinalysis is clear here, but given her symptoms will treat as a UTI. She declines a pelvic examination and does have an appointment with her PCP later this week. She was counseled at length that if she is not improving as expected she should have a pelvic examination performed for alternate etiologies. Patient is well-appearing, nontoxic. Afebrile. No CVA tenderness. Patient counseled regarding signs and symptoms for which I believe and urgent re-evaluation would be necessary. Patient with good understanding of and agreement to plan and is comfortable going home at this time This document was made in part using voice recognition software. While efforts are made to proofread this document, sound alike and grammatical errors may occur. - Sepsis Event Vital Signs: Vital Signs - 24 hr 04/09/18 04/09/18 19:19 21:20 Temperature 36.4 C L Heart Rate 84 Respiratory 18 17 Rate Blood Pressure 137/78 H O2 Saturation 100 98 Oxygen O2 Source Room air Departure - Departure Disposition: Home, Self Care Clinical Impression: UTI (urinary tract infection) Qualifiers: Urinary tract infection type: acute cystitis Hematuria presence: without hematuria Qualified Code(s): N30.00 - Acute cystitis without hematuria Condition: Good Instructions: ED UTI Cystitis Female Follow-Up: Brandi Adames DO [Primary Care Provider] - 04/13/18 Prescriptions: Nitrofurantoin Monohyd/M-Cryst [Macrobid 100 mg Capsule] 100 mg PO BID #10 capsule Phenazopyridine HCl [Pyridium] 200 mg PO TID PRN #6 tablet PRN Reason: dysuria Comments: We did discuss a pelvic examination today, but will treat you for UTI. If you are still having symptoms when you see your doctor on Monday, you should have a pelvic examination performed to exclude other causes of your symptoms. Take all antibiotics until gone. Return if you worsen Discharge Date/Time: 04/09/18 21:20
== END 2018-04-09 21:20 | disposition home or self-care (01) ==
LOC: ED 19:12
DX: N30.00 Acute cystitis without hematuria (principal)
CPT/HCPCS: 81003; 81025; 99283; A9270; 81001; 87086

== ENCOUNTER 2018-05-31 12:54 | Emergency (ER) | payer MEDICAID ==
[2018-05-31 13:26] LABS: BASOPHILS # (AUTO) 0.1 10^3/uL (0.0-0.1); BASOPHILS % (AUTO) 0.8 %; EOSINOPHILS # (AUTO) 0.4 10^3/uL (0.0-0.7); EOSINOPHILS % (AUTO) 4.4 %; HGB - HEMOGLOBIN 15.2 g/dL (12.0-16.0); LYMPHOCYTES # (AUTO) 2.2 10^3/uL (1.5-3.5); LYMPHOCYTES % (AUTO) 24.4 %; MEAN CORPUSCULAR HGB CONC 34.9 g/dL (32.0-36.0); MEAN CORPUSCULAR VOLUME 91.6 fL (81.0-99.0); MEAN PLATELET VOLUME 7.4 fL (7.9-10.8); MONOCYTES # (AUTO) 0.5 10^3/uL (0.0-1.0); MONOCYTES % (AUTO) 5.3 %; NEUTROPHILS # (AUTO) 5.8 10^3/uL (1.5-6.6); NEUTROPHILS % (AUTO) 65.1 %; PLT - PLATELET COUNT 293 10^3/uL (130-450); RED BLOOD COUNT 4.75 10^6/uL (4.20-5.40); RED CELL DISTRIBUTION WIDTH 12.9 % (12.0-15.0); WHITE BLOOD COUNT 8.9 x10^3/uL (4.8-10.8)
[2018-05-31 13:30] LABS: BILIRUBIN,URINE NEGATIVE (NEGATIVE); GLUCOSE, URINE (UA) NEGATIVE (NEGATIVE); KETONES,URINE (UA) NEGATIVE (NEGATIVE); LEUKOCYTE ESTERASE, URINE NEGATIVE (NEGATIVE); NITRITE,URINE NEGATIVE (NEGATIVE); OCCULT BLOOD,URINE NEGATIVE (NEGATIVE); PH,URINE 6.5 PH (5.0-7.5); PROTEIN,URINE NEGATIVE (NEGATIVE); UROBILINOGEN,URINE 0.2 (NORMAL) E.U./dL (NORMAL)
[2018-05-31 13:31] LABS: CLARITY,URINE CLEAR (CLEAR); HCG UR QUAL NEGATIVE
[2018-05-31 13:39] LABS: ALBUMIN 4.6 g/dL (3.2-5.5); ALBUMIN/GLOBULIN RATIO 1.6 (1.0-2.2); BILIRUBIN,TOTAL 0.4 mg/dL (0.2-1.0); CALCIUM 9.3 mg/dL (8.5-10.3); CREATININE 0.6 mg/dL (0.4-1.0); TOTAL PROTEIN 7.5 g/dL (6.7-8.2)
--- NOTE | 2018-05-31 14:20 | ED Physician Documentation ---
PD HPI ABD PAIN - Stated complaint Stated Complaint: ABD PX - Chief complaint Chief Complaint: Abd Pain - History obtained from History obtained from: Patient - History of Present Illness Timing - onset: How many days ago (3) Timing - duration: Days (3) Timing - details: Gradual onset, Still present Quality: Sharp, Pain Location: LLQ Radiation: Lower back Improved by: Laying still Worsened by: Moving, Position, Palpation Associated symptoms: No: Fever, Nausea, Vomiting Similar symptoms before: Diagnosis (intestinal adheasions) Recently seen: Not recently seen - Additional information Additional information: 38-year-old female with a history of chronic abdominal pain has had episodes of severe pain and these appear to be related to postoperative adhesions. She has had surgery with lysis of adhesions earlier in this year and subsequent to that she did have an episode similar to this episode with severe pain which she states was treated with pain medication and improved. She does have chronic abdominal pain in the same area and for this she is being sent to pain management by Dr. Stoner. The patient is not on opiates chronically. She believes today that management of her pain is the imperative part of treatment. She is able to eat she is not having vomiting or constipation. She has been having bowel movement and she is able to eat. She denies fever. She states the pain that she is having now is similar to what she has had previously. Review of Systems Constitutional: denies: Fever Eyes: denies: Decreased vision Ears: denies: Ear pain Nose: denies: Congestion Throat: denies: Sore throat Cardiac: denies: Chest pain / pressure, Palpitations Respiratory: denies: Dyspnea, Cough GI: reports: Abdominal Pain. denies: Nausea, Vomiting, Constipation, Diarrhea : denies: Dysuria, Frequency Skin: denies: Rash Musculoskeletal: reports: Back pain. 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, Hysterectomy, Oophrectomy HEENT: Myringotomy (tubes), Tonsil/Adenoidectomy - Present Medications Home Medications: Ambulatory Orders Medication Instructions Recorded Confirmed RX: Amitriptyline HCl 30 mg PO DAILY PM 12/07/17 12/13/17 RX: oxyCODONE [Roxicodone] 5 mg PO Q4-6H PRN #20 tablet 02/05/18 Alprazolam [Xanax] 0.25 mg PO 05/31/18 Cyclobenzaprine [Flexeril] 10 mg PO TID PRN 05/31/18 05/31/18 RX: Dexamethasone 4 mg PO DAILY #5 tablet 05/31/18 RX: HYDROcod/ACETAM 5/325 [[place] 1 - 2 ea PO Q6H PRN #15 tablet 05/31/18 5/325] - Allergies Allergies/Adverse Reactions: Allergies Allergy/AdvReac Type Severity Reaction Status Date / Time morphine AdvReac Hives Verified 05/31/18 13:02 - Social History Does the pt smoke?: No Smoking Status: Never smoker Does the pt drink ETOH?: Yes Does the pt have substance abuse?: No - Immunizations Immunizations are current?: No Immunizations: TDAP >10years/unknown - POLST Patient has POLST: No PD ED PE NORMAL - Vitals Vital signs reviewed: Yes (hypertensive ) - General General: Alert and oriented X 3, Well developed/nourished, Other (bag 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 ) - Back Back: No CVA TTP, No spinal TTP - Derm Derm: Normal color, Warm and dry, No rash - Extremities Extremities: No deformity, No edema - Neuro Neuro: Alert and oriented X 3, operations lead 2-12 intact, No motor deficit, No sensory deficit, Normal speech Eye Opening: Spontaneous Motor: Obeys Commands Verbal: Oriented GCS Score: 15 - Psych Psych: Normal mood, Other (flat affect ) Results - Vitals Vitals: Vital Signs - 24 hr 05/31/18 05/31/18 05/31/18 12:59 14:41 16:06 Temperature 36.3 C L Heart Rate 79 68 64 Respiratory 16 16 16 Rate Blood Pressure 131/95 H 128/82 H 129/75 O2 Saturation 100 100 100 05/31/18 05/31/18 16:51 17:29 Temperature 36.4 C L Heart Rate 67 73 Respiratory 16 16 Rate Blood Pressure 116/64 104/60 O2 Saturation 99 100 Oxygen O2 Source Room air - Labs Labs: Laboratory Tests 05/31/18 05/31/18 05/31/18 13:09 13:19 13:19 WBC 8.9 RBC 4.75 Hgb 15.2 Hct 43.6 MCV 91.6 MCH 32.0 H MCHC 34.9 RDW 12.9 Plt Count 293 MPV 7.4 L Neut # (Auto) 5.8 Lymph # (Auto) 2.2 [place] # (Auto) 0.5 Eos # (Auto) 0.4 Baso # (Auto) 0.1 Absolute Nucleated RBC 0.00 Nucleated RBC % 0.0 Sodium 137 Potassium 3.7 Chloride 102 Carbon Dioxide 26 Anion Gap 9.0 BUN 14 Creatinine 0.6 Estimated GFR (MDRD) 112 Glucose 91 Calcium 9.3 Total Bilirubin 0.4 AST 20 ALT 20 Alkaline Phosphatase 54 Total Protein 7.5 Albumin 4.6 Globulin 2.9 Albumin/Globulin Ratio 1.6 Lipase 32 Urine Color YELLOW Urine Clarity CLEAR Urine pH 6.5 Ur Specific [place] 1.010 Urine Protein NEGATIVE Urine Glucose (UA) NEGATIVE Urine Ketones NEGATIVE Urine Occult Blood NEGATIVE Urine Nitrite NEGATIVE Urine Bilirubin NEGATIVE Urine Urobilinogen 0.2 (NORMAL) Ur Leukocyte Esterase NEGATIVE Ur Microscopic Review NOT INDICATED Urine Culture Comments NOT INDICATED Urine HCG, Qual NEGATIVE PD MEDICAL DECISION MAKING - ED course Complexity details: reviewed old records, reviewed results, re-evaluated patient, considered differential, d/w patient, d/w family ED course: 38-year-old female with left lower quadrant abdominal pain has a history of previous episode similar to this and she states that these episodes usually last 2 days. Here in the emergency department an IV is begun she is given a milligram of Dilaudid and 4 mg of Zofran as well as a liter of saline. She has some improvement in her pain but not resolution. She is administered a second milligram of Dilaudid. This does not help much and she is administered toradal IV with improvement. - Sepsis Event Vital Signs: Vital Signs - 24 hr 05/31/18 05/31/18 05/31/18 12:59 14:41 16:06 Temperature 36.3 C L Heart Rate 79 68 64 Respiratory 16 16 16 Rate Blood Pressure 131/95 H 128/82 H 129/75 O2 Saturation 100 100 100 05/31/18 05/31/18 16:51 17:29 Temperature 36.4 C L Heart Rate 67 73 Respiratory 16 16 Rate Blood Pressure 116/64 104/60 O2 Saturation 99 100 Oxygen O2 Source Room air Departure - Departure Disposition: Home, Self Care Clinical Impression: Abdominal pain, left lower quadrant Condition: Stable Instructions: ED Abdominal Pain Unkn Cause Follow-Up: Sheyla Brenner DO [Provider Admit Priv/Credential] - Prescriptions: RX: Dexamethasone 4 mg PO DAILY #5 tablet RX: HYDROcod/ACETAM 5/325 [[place] 5/325] 1 - 2 ea PO Q6H PRN #15 tablet PRN Reason: Pain Discharge Date/Time: 05/31/18 17:30
[2018-05-31] MEDS ORDERED: HYDROmorphone 1 MG/ML CARPUJECT IVP STA ×2 (14:32→15:58)
[2018-05-31] MEDS ORDERED: ONDANSETRON 4 MG/2 ML VIAL IVP STA (14:32)
[2018-05-31] MEDS ORDERED: SODIUM CHLORIDE 0.9% 1,000 ML IV ONE (14:32)
[2018-05-31] MEDS ORDERED: KETOROLAC 60 MG/2 ML VIAL IVP STA (16:44)
[2018-05-31 17:30] VITALS: BP 104/60
== END 2018-05-31 17:30 | disposition home or self-care (01) ==
LOC: ED 12:54
DX: R10.32 Left lower quadrant pain (principal)
CPT/HCPCS: 36415; 80053; 81003; 81025; 83690; 85025; 96361; 96374; 96375; 96376; 99283; 99284; J1170; 81001; 87086

== ENCOUNTER 2018-06-15 08:56 | Emergency (ER) | payer MEDICAID ==
[2018-06-15] MEDS ORDERED: DEXAMETHASONE 10 MG/ML VIAL PO STA (09:36)
[2018-06-15] MEDS ORDERED: KETOROLAC 60 MG/2 ML VIAL IM STA (09:36)
--- NOTE | 2018-06-15 09:38 | ED Physician Documentation ---
PD HPI BACK PAIN - Stated complaint Stated Complaint: BACK PX - Chief complaint Chief Complaint: Abd Pain - History obtained from History obtained from: Patient, Family - History of Present Illness Timing - onset: Yesterday Timing - duration: Days (1) Timing - details: Gradual onset, Still present Location: Mid, Lower, Left Quality: Pain, Spasm, Sharp, Similar to prior episodes Associated symptoms: No: Fever, Weakness, Numbness, Incontinent of urine, Unable to urinate, Hematuria, Incontinent of stool Improves with: Rest, Position Worsened by: Movement Similar symptoms before: Diagnosis (lumbar disc disease) Recently seen: Emergency Dept - Additional information Additional information: 38-year-old female with history of chronic abdominal pain is developed some left lower back pain and this radiates up into her ribs on the left side. She had to call off work today because she has severe pain if she tries to sit. She indicates that she has had 2 prior back surgeries in the and this pain is similar to what she has had with that previously. She does state that the abdominal pain that she had last month behaved similar to what it has had previously and resolved within 2-3 days. Review of Systems Constitutional: denies: Fever Eyes: denies: Decreased vision Ears: denies: Ear pain Nose: denies: Congestion Throat: denies: Sore throat Cardiac: denies: Chest pain / pressure, Palpitations Respiratory: denies: Dyspnea, Cough GI: reports: Nausea. denies: Abdominal Pain : denies: Dysuria, Frequency Skin: denies: Rash Musculoskeletal: reports: Back pain. 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, Hysterectomy, Oophrectomy HEENT: Myringotomy (tubes), Tonsil/Adenoidectomy - Present Medications Home Medications: Ambulatory Orders Medication Instructions Recorded Confirmed Amitriptyline HCl 30 mg PO DAILY PM 12/07/17 12/13/17 oxyCODONE [Roxicodone] 5 mg PO Q4-6H PRN #20 tablet 02/05/18 Alprazolam [Xanax] 0.25 mg PO 05/31/18 Cyclobenzaprine [Flexeril] 10 mg PO TID PRN 05/31/18 05/31/18 HYDROcod/ACETAM 5/325 [[place] 5/325] 1 - 2 ea PO Q6H PRN #15 tablet 05/31/18 Oxycodone HCl/Acetaminophen 1 - 2 each PO Q6HR PRN #15 tablet 06/15/18 [Oxycodone-Acetaminophen 5-325] - Allergies Allergies/Adverse Reactions: Allergies Allergy/AdvReac Type Severity Reaction Status Date / Time morphine AdvReac Hives Verified 06/15/18 09:04 - Social History Does the pt smoke?: No Smoking Status: Never smoker Does the pt drink ETOH?: Yes Does the pt have substance abuse?: No - Immunizations Immunizations are current?: No Immunizations: TDAP >10years/unknown - POLST Patient has POLST: No PD ED PE NORMAL - Vitals Vital signs reviewed: Yes (hypertensive diastolic ) - General General: Alert and oriented X 3, Well developed/nourished, Other (patient appears to be in pain with cheese wrapper tone and flat affect. ) - HEENT HEENT: Atraumatic, PERRL, EOMI - Neck Neck: Supple, no meningeal sign - Respiratory Respiratory: No respiratory distress - Back Back: No CVA TTP, No spinal TTP, Other (Tenderness to palpation of the parasp inous muscles of the lower lumbar spine on the lft side. ) - Derm Derm: Normal color, Warm and dry, No rash - Extremities Extremities: No deformity, No edema - Neuro Neuro: Alert and oriented X 3, bread icer 2-12 intact, No motor deficit, No sensory deficit, Normal speech Eye Opening: Spontaneous Motor: Obeys Commands Verbal: Oriented GCS Score: 15 - Psych Psych: Normal mood Results - Vitals Vitals: Vital Signs - 24 hr 06/15/18 09:03 Temperature 36 C L Heart Rate 98 Respiratory 20 Rate Blood Pressure 139/97 H O2 Saturation 99 Oxygen O2 Source Room air Procedures - Bedside sono Bedside sono by EMP: With use of bedside ultrasound the left kidney is imaged it is sonographically nontender and there is no evidence of hydronephrosis. PD MEDICAL DECISION MAKING - ED course Complexity details: considered differential, d/w patient, d/w family ED course: 38-year-old female with chronic abdominal pain has developed now back pain does appear to be related to the lumbar paraspinous muscles. She has a nontender left kidney and no evidence of hydronephrosis. She is treated here in the emergency department with 10 mg of dexamethasone and 60 mg of Toradol IM. - Sepsis Event Vital Signs: Vital Signs - 24 hr 06/15/18 09:03 Temperature 36 C L Heart Rate 98 Respiratory 20 Rate Blood Pressure 139/97 H O2 Saturation 99 Oxygen O2 Source Room air Departure - Departure Disposition: Home, Self Care Clinical Impression: Lumbar strain Qualifiers: Encounter type: initial encounter Qualified Code(s): S39.012A - Strain of muscle, fascia and tendon of lower back, initial encounter Condition: Stable Instructions: ED Spasm Back No Trauma Follow-Up: Your, doctor [Other] Prescriptions: Oxycodone HCl/Acetaminophen [Oxycodone-Acetaminophen 5-325] 1 - 2 each PO Q6HR PRN #15 tablet PRN Reason: Pain
[2018-06-15 10:09] VITALS: BP 129/61
== END 2018-06-15 10:12 | disposition home or self-care (01) ==
LOC: ED 08:56
DX: S39.012A Strain of muscle, fascia and tendon of lower back, initial encounter (principal); X58.XXXA Exposure to other specified factors, initial encounter
CPT/HCPCS: 96372; 99283

== ENCOUNTER 2018-11-04 13:11 | Emergency (ER) | payer MEDICAID ==
[2018-11-04 13:21] VITALS: BP 136/82
[2018-11-04 13:33] LABS: BILIRUBIN,URINE NEGATIVE (NEGATIVE); GLUCOSE, URINE (UA) NEGATIVE (NEGATIVE); KETONES,URINE (UA) NEGATIVE (NEGATIVE)
[2018-11-04 13:37] LABS: CLARITY,URINE CLEAR (CLEAR)
[2018-11-04 13:49] LABS: BACTERIA,URINE Rare /HPF (None Seen); SQUAMOUS EPITHELIAL CELL,UR RARE Squamous (<= Few)
[2018-11-04] MEDS ORDERED: SULFAMETH/TRIMETH DS 800/160 MG TABLET PO STA (13:51)
--- NOTE | 2018-11-04 13:56 | ED Physician Documentation ---
PD HPI FEMALE - Stated complaint Stated Complaint: FEMALE - Chief complaint Chief Complaint: UTI - History obtained from History obtained from: Patient - History of Present Illness Timing - onset: How many days ago (4) Timing - duration: Days (4) Timing - details: Gradual onset, Still present Associated symptoms: Abdominal pain, Back pain, Dysuria, Urinary frequency. No: Fever Contributing factors: No: , Exposed to STD Similar symptoms before: Diagnosis (UTIs) Review of Systems Constitutional: reports: Chills. denies: Fever Nose: denies: Rhinorrhea / runny nose, Congestion Throat: denies: Sore throat Respiratory: denies: Cough GI: denies: Nausea, Vomiting, Diarrhea : reports: Dysuria, Frequency. denies: Hematuria, Discharge Skin: denies: Rash Musculoskeletal: reports: Back pain. denies: Neck pain PD PAST MEDICAL HISTORY - Past Medical History Past Medical History: Yes Cardiovascular: None Respiratory: Asthma Neuro: None Endocrine/Autoimmune: None GI: GERD CANAL TENDER: None : Kidney stones HEENT: Chronic vision loss, Chronic hearing loss Psych: Depression, Anxiety, Panic attacks, Claustrophobia Musculoskeletal: Osteoarthritis, Fibromyalgia, Scoliosis, Chronic back pain, Other Derm: None - Past Surgical History Past Surgical History: Yes General: Other Ortho: Spine surgery /CANAL TENDER: section, Hysterectomy, Oophrectomy HEENT: Myringotomy (tubes), Tonsil/Adenoidectomy - Present Medications Home Medications: Ambulatory Orders Medication Instructions Recorded Confirmed Amitriptyline HCl 30 mg PO DAILY PM 12/07/17 12/13/17 oxyCODONE [Roxicodone] 5 mg PO Q4-6H PRN #20 tablet 02/05/18 Alprazolam [Xanax] 0.25 mg PO 05/31/18 Cyclobenzaprine [Flexeril] 10 mg PO TID PRN 05/31/18 05/31/18 HYDROcod/ACETAM 5/325 [[place] 5/325] 1 - 2 ea PO Q6H PRN #15 tablet 05/31/18 Oxycodone HCl/Acetaminophen 1 - 2 each PO Q6HR PRN #15 tablet 06/15/18 [Oxycodone-Acetaminophen 5-325] Phenazopyridine HCl [Pyridium] 200 mg PO TID PRN #6 tablet 11/04/18 Sulfamethox/Trimeth 800/160 1 each PO BID #14 tablet 11/04/18 [Bactrim Ds 800/160] - Allergies Allergies/Adverse Reactions: Allergies Allergy/AdvReac Type Severity Reaction Status Date / Time morphine AdvReac Hives Verified 11/04/18 13:21 - Social History Does the pt smoke?: No Smoking Status: Never smoker Does the pt drink ETOH?: Yes Does the pt have substance abuse?: No - Immunizations Immunizations are current?: No Immunizations: TDAP >10years/unknown - POLST Patient has POLST: No PD ED PE NORMAL - Vitals Vital signs reviewed: Yes - General General: Alert and oriented X 3, No acute distress, Well developed/nourished - Abdomen Abdomen: Soft, Non tender - Back Back: No CVA TTP - Derm Derm: Normal color, Warm and dry Results - Vitals Vitals: Vital Signs - 24 hr 11/04/18 13:20 Temperature 36.0 C L Heart Rate 80 Respiratory 18 Rate Blood Pressure 136/82 H O2 Saturation 100 Oxygen O2 Source Room air - Labs Labs: Laboratory Tests 11/04/18 13:23 Urine Color ORANGE Urine Clarity CLEAR Urine pH 7.0 Ur Specific [place] 1.010 Urine Protein Urine Glucose (UA) NEGATIVE Urine Ketones NEGATIVE Urine Occult Blood Urine Nitrite Urine Bilirubin NEGATIVE Urine Urobilinogen Ur Leukocyte Esterase Urine RBC 11-25 H Urine WBC 11-25 H Ur Squamous Epith Cells RARE Squamous Urine Bacteria Rare Ur Microscopic Review INDICATED Urine Culture Comments INDICATED PD MEDICAL DECISION MAKING - ED course Complexity details: reviewed results (c/w UTI), considered differential, d/w patient Departure - Departure Disposition: 01 Home, Self Care Clinical Impression: Cystitis Condition: Stable Record reviewed to determine appropriate education?: Yes Instructions: ED UTI Cystitis Female Follow-Up: Brandi Adames DO [Primary Care Provider] - Prescriptions: Phenazopyridine HCl [Pyridium] 200 mg PO TID PRN #6 tablet PRN Reason: dysuria Sulfamethox/Trimeth 800/160 [Bactrim Ds 800/160] 1 each PO BID #14 tablet Comments: Your urine test is consistent with the bladder infection. We will treated with Bactrim twice daily as directed. Continue phenazopyridine if needed. Tylenol or ibuprofen if needed for pains. Stay well-hydrated. This should improve over the next few days.
== END 2018-11-04 14:03 | disposition home or self-care (01) ==
LOC: ED 13:11
DX: N30.90 Cystitis, unspecified without hematuria (principal)
CPT/HCPCS: 81001; 87086; 99283; A9270; 81003

== ENCOUNTER 2019-01-13 18:27 | Emergency (ER) | payer MEDICAID ==
[2019-01-13 18:54] LABS: BILIRUBIN,URINE NEGATIVE (NEGATIVE); GLUCOSE, URINE (UA) NEGATIVE (NEGATIVE); KETONES,URINE (UA) NEGATIVE (NEGATIVE); LEUKOCYTE ESTERASE, URINE NEGATIVE (NEGATIVE); NITRITE,URINE NEGATIVE (NEGATIVE); OCCULT BLOOD,URINE NEGATIVE (NEGATIVE); PH,URINE 5.5 PH (5.0-7.5); PROTEIN,URINE NEGATIVE (NEGATIVE); UROBILINOGEN,URINE 0.2 (NORMAL) E.U./dL (NORMAL)
[2019-01-13 18:57] LABS: CLARITY,URINE CLEAR (CLEAR); HCG UR QUAL NEGATIVE
[2019-01-13] MEDS ORDERED: KETOROLAC 30 MG/ML VIAL IVP STA (20:33)
[2019-01-13] MEDS ORDERED: PROMETHAZINE INJ 12.5 MG in SODIUM CHLORIDE 0.9% 50 ML IV STA (20:33)
[2019-01-13 20:50] LABS: MUDS CUTOFF CONCENTRATIONS CUTOFF CONC BELOW:
[2019-01-13 20:51] LABS: BASOPHILS # (AUTO) 0.1 10^3/uL (0.0-0.1); EOSINOPHILS # (AUTO) 0.3 10^3/uL (0.0-0.7); EOSINOPHILS % (AUTO) 2.6 %; HGB - HEMOGLOBIN 14.5 g/dL (12.0-16.0); LYMPHOCYTES # (AUTO) 2.7 10^3/uL (1.5-3.5); LYMPHOCYTES % (AUTO) 25.5 %; MEAN CORPUSCULAR HEMOGLOBIN 31.2 pg (27.0-31.0); MEAN CORPUSCULAR HGB CONC 34.2 g/dL (32.0-36.0); MEAN PLATELET VOLUME 7.5 fL (7.9-10.8); MONOCYTES # (AUTO) 0.7 10^3/uL (0.0-1.0); MONOCYTES % (AUTO) 6.6 %; NEUTROPHILS # (AUTO) 6.7 10^3/uL (1.5-6.6); NEUTROPHILS % (AUTO) 64.3 %; PLT - PLATELET COUNT 279 10^3/uL (130-450); RED BLOOD COUNT 4.64 10^6/uL (4.20-5.40); RED CELL DISTRIBUTION WIDTH 13.2 % (12.0-15.0); WHITE BLOOD COUNT 10.4 x10^3/uL (4.8-10.8)
--- NOTE | 2019-01-13 20:56 | ED Physician Documentation ---
PD HPI ABD PAIN - Stated complaint Stated Complaint: PAIN IN ABD - Chief complaint Chief Complaint: Abd Pain - History obtained from History obtained from: Patient - History of Present Illness Timing - onset: Today Timing - details: Still present in ED Quality: Pain Location: Other (lower abdomen) Similar symptoms before: Diagnosis ("pinched nerve") - Additional information Additional information: The patient is a 38-year-old female who complains of lower abdominal pain that started today, a few hours prior to arrival. She has had similar pain intermittently for the past 2 years; the last time was about 3 months ago. She has undergone workup including CT scan and colonoscopy that have been nondiagnostic. Surgical history includes appendectomy, , hysterectomy, and lysis of adhesions. She has on also undergone lumbar laminectomy. She believes her pain is due to a "pinched nerve." She denies fever, nausea, vomiting, diarrhea, or dysuria. She states that usually Toradol helps her pain. Review of Systems Constitutional: denies: Fever Ears: denies: Tinnitus/ringing Nose: denies: Congestion Throat: denies: Sore throat Cardiac: denies: Chest pain / pressure Respiratory: denies: Dyspnea, Cough GI: reports: Abdominal Pain. denies: Nausea, Vomiting, Diarrhea : reports: Hysterectomy. 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 : Kidney stones HEENT: Chronic vision loss, Chronic hearing loss Psych: Depression, Anxiety, Panic attacks, Claustrophobia Musculoskeletal: Osteoarthritis, Fibromyalgia, Scoliosis, Chronic back pain, Other Derm: None - Past Surgical History Past Surgical History: Yes General: Other Ortho: Spine surgery /HOSE INSPECTOR: section, Hysterectomy, Oophrectomy HEENT: Myringotomy (tubes), Tonsil/Adenoidectomy - Present Medications Home Medications: Ambulatory Orders Medication Instructions Recorded Confirmed Amitriptyline HCl 30 mg PO DAILY PM 12/07/17 12/13/17 oxyCODONE [Roxicodone] 5 mg PO Q4-6H PRN #20 tablet 02/05/18 Alprazolam [Xanax] 0.25 mg PO 05/31/18 Cyclobenzaprine [Flexeril] 10 mg PO TID PRN 05/31/18 05/31/18 HYDROcod/ACETAM 5/325 [[place] 5/325] 1 - 2 ea PO Q6H PRN #15 tablet 05/31/18 Oxycodone HCl/Acetaminophen 1 - 2 each PO Q6HR PRN #15 tablet 06/15/18 [Oxycodone-Acetaminophen 5-325] Phenazopyridine HCl [Pyridium] 200 mg PO TID PRN #6 tablet 11/04/18 Sulfamethox/Trimeth 800/160 1 each PO BID #14 tablet 11/04/18 [Bactrim Ds 800/160] Ketorolac [Toradol] 10 mg PO Q6H PRN #15 tablet 01/13/19 - Allergies Allergies/Adverse Reactions: Allergies Allergy/AdvReac Type Severity Reaction Status Date / Time morphine AdvReac Hives Verified 01/13/19 18:34 - Social History Does the pt smoke?: No Smoking Status: Never smoker Does the pt drink ETOH?: Yes Does the pt have substance abuse?: No - Immunizations Immunizations are current?: No Immunizations: TDAP >10years/unknown - POLST Patient has POLST: No PD ED PE NORMAL - Vitals Vital signs reviewed: Yes (initially hypertensive.) - General General: Alert and oriented X 3, Well developed/nourished, Other (Obese.) - HEENT HEENT: Atraumatic, Pharynx benign - Neck Neck: No adenopathy, No JVD - Cardiac Cardiac: RRR - Respiratory Respiratory: No respiratory distress, Clear bilaterally - Abdomen Abdomen: Soft, Other (Mild tenderness to palpation across the lower abdomen, without focal tenderness or rebound.) - Back Back: No CVA TTP - Derm Derm: No rash - Extremities Extremities: No edema, No calf tenderness / cord - Neuro Neuro: Alert and oriented X 3, No motor deficit, Normal speech Results - Vitals Vitals: Oxygen O2 Source Room air - Labs Labs: Laboratory Tests 01/13/19 01/13/19 01/13/19 18:42 18:42 20:42 WBC 10.4 RBC 4.64 Hgb 14.5 Hct 42.2 MCV 91.0 MCH 31.2 H MCHC 34.2 RDW 13.2 Plt Count 279 MPV 7.5 L Neut # (Auto) 6.7 H Lymph # (Auto) 2.7 [place] # (Auto) 0.7 Eos # (Auto) 0.3 Baso # (Auto) 0.1 Absolute Nucleated RBC 0.00 Nucleated RBC % 0.0 Sodium Potassium Chloride Carbon Dioxide Anion Gap BUN Creatinine Estimated GFR (MDRD) Glucose Calcium Total Bilirubin AST ALT Alkaline Phosphatase Total Protein Albumin Globulin Albumin/Globulin Ratio Lipase Urine Color YELLOW Urine Clarity CLEAR Urine pH 5.5 Ur Specific [place] <=1.005 Urine Protein NEGATIVE Urine Glucose (UA) NEGATIVE Urine Ketones NEGATIVE Urine Occult Blood NEGATIVE Urine Nitrite NEGATIVE Urine Bilirubin NEGATIVE Urine Urobilinogen 0.2 (NORMAL) Ur Leukocyte Esterase NEGATIVE Ur Microscopic Review NOT INDICATED Urine Culture Comments NOT INDICATED Urine HCG, Qual NEGATIVE Urine Opiates Screen NEGATIVE Ur Oxycodone Screen NEGATIVE Urine Methadone Screen NEGATIVE Ur Propoxyphene Screen NEGATIVE Ur Barbiturates Screen NEGATIVE Ur Tricyclics Screen POSITIVE H Ur Phencyclidine Scrn NEGATIVE Ur Amphetamine Screen NEGATIVE U Methamphetamines Scrn NEGATIVE U Benzodiazepines Scrn NEGATIVE Urine Cocaine Screen NEGATIVE U Cannabinoids Screen POSITIVE H 01/13/19 20:42 WBC RBC Hgb Hct MCV MCH MCHC RDW Plt Count MPV Neut # (Auto) Lymph # (Auto) [place] # (Auto) Eos # (Auto) Baso # (Auto) Absolute Nucleated RBC Nucleated RBC % Sodium 138 Potassium 3.3 L Chloride 104 Carbon Dioxide 22 Anion Gap 12.0 BUN 18 Creatinine 0.7 Estimated GFR (MDRD) 94 Glucose 98 Calcium 9.1 Total Bilirubin 0.6 AST 23 ALT 24 Alkaline Phosphatase 55 Total Protein 7.3 Albumin 4.1 Globulin 3.2 Albumin/Globulin Ratio 1.3 Lipase 27 Urine Color Urine Clarity Urine pH Ur Specific [place] Urine Protein Urine Glucose (UA) Urine Ketones Urine Occult Blood Urine Nitrite Urine Bilirubin Urine Urobilinogen Ur Leukocyte Esterase Ur Microscopic Review Urine Culture Comments Urine HCG, Qual Urine Opiates Screen Ur Oxycodone Screen Urine Methadone Screen Ur Propoxyphene Screen Ur Barbiturates Screen Ur Tricyclics Screen Ur Phencyclidine Scrn Ur Amphetamine Screen U Methamphetamines Scrn U Benzodiazepines Scrn Urine Cocaine Screen U Cannabinoids Screen PD MEDICAL DECISION MAKING - ED course Complexity details: reviewed old records, reviewed results, re-evaluated patient, considered differential, d/w patient, d/w family ED course: The underlying cause of the patient's lower abdominal pain is uncertain at this time. CBC, chemistry panel, and urinalysis are unremarkable. Her presentation does not suggest diverticulitis, pancreatitis, or pyelonephritis. Adhesions is a strong consideration, but there is no evidence of bowel obstruction. Treatment in the emergency department included administration of ketorolac 30 mg IV and Phenergan 12.5 mg IV. Subsequently fentanyl 50 g was administered IV 2. Her symptoms completely resolved with the above treatment, and repeat abdominal examination reveals a benign abdomen. I discussed with her and her symptomatic treatment, outpatient follow-up, as well as potentially worrisome signs or symptoms that should prompt reevaluation in the emergency department. She is being discharged with prescription for Toradol. Departure - Departure Disposition: Home, Self Care Clinical Impression: Abdominal pain Qualifiers: Abdominal location: generalized Qualified Code(s): R10.84 - Generalized abdominal pain Vomiting Qualifiers: Vomiting type: cyclical vomiting Vomiting Intractability: non-intractable Nausea presence: with nausea Qualified Code(s): G43.A0 - Cyclical vomiting, not intractable Condition: Stable Instructions: ED Abdominal Pain Unkn Cause Follow-Up: Brandi Adames DO [Primary Care Provider] - Prescriptions: Ketorolac [Toradol] 10 mg PO Q6H PRN #15 tablet PRN Reason: Pain Comments: Drink plenty of fluids. You can use your antinausea medication as previously prescribed. Consider refraining from marijuana use to see if that will diminish your abdominal symptoms. Follow-up with your primary physician within 1 week. Call to schedule an appointment. Return to the emergency department if you develop increasing abdominal pain, persistent vomiting, dehydration, or otherwise worsening symptoms. Discharge Date/Time: 01/13/19 23:59
[2019-01-13 21:02] LABS: ALBUMIN 4.1 g/dL (3.2-5.5); ALBUMIN/GLOBULIN RATIO 1.3 (1.0-2.2); BILIRUBIN,TOTAL 0.6 mg/dL (0.2-1.0); CALCIUM 9.1 mg/dL (8.5-10.3); CREATININE 0.7 mg/dL (0.4-1.0); TOTAL PROTEIN 7.3 g/dL (6.7-8.2)
[2019-01-13] MEDS ORDERED: fentaNYL 100 MCG/2 ML VIAL IVP PRN (21:09)
[2019-01-13] MEDS ORDERED: fentaNYL 100 MCG/2 ML VIAL IVP STA ×2 (21:09→22:29)
[2019-01-13 21:10] LABS: AMPHETAMINE SCREEN,URINE NEGATIVE (NEGATIVE); BENZODIAZEPINES SCREEN, URINE NEGATIVE (NEGATIVE); COCAINE SCREEN URINE NEGATIVE (NEGATIVE); METHADONE SCREEN, URINE NEGATIVE (NEGATIVE); METHAMPHETAMINES SCREEN, URINE NEGATIVE (NEGATIVE); OPIATE SCREEN, URINE NEGATIVE (NEGATIVE); TRICYCLIC ANTIDEPRESSANT,URINE POSITIVE (NEGATIVE)
[2019-01-13 21:11] LABS: OXYCODONE SCREEN, URINE NEGATIVE (NEGATIVE); PROPOXYPHENE SCREEN, URINE NEGATIVE (NEGATIVE)
[2019-01-13 23:30] VITALS: BP 108/71
== END 2019-01-13 23:59 | disposition home or self-care (01) ==
LOC: ED 18:27
DX: R10.84 Generalized abdominal pain (principal); G43.A0 Cyclical vomiting, in migraine, not intractable
CPT/HCPCS: 36415; 80053; 80306; 81003; 81025; 83690; 85025; 96365; 96375; 96376; 99283; 99284; J7040; 81001; 87086

== ENCOUNTER 2019-04-30 13:49 | Emergency (ER) | payer MEDICAID ==
[2019-04-30 14:06] VITALS: BP 138/99
[2019-04-30 14:24] LABS: BASOPHILS # (AUTO) 0.1 10^3/uL (0.0-0.1); BASOPHILS % (AUTO) 0.9 %; EOSINOPHILS # (AUTO) 0.6 10^3/uL (0.0-0.7); HGB - HEMOGLOBIN 15.7 g/dL (12.0-16.0); LYMPHOCYTES # (AUTO) 2.8 10^3/uL (1.5-3.5); LYMPHOCYTES % (AUTO) 32.2 %; MEAN CORPUSCULAR HEMOGLOBIN 31.5 pg (27.0-31.0); MEAN CORPUSCULAR HGB CONC 33.9 g/dL (32.0-36.0); MEAN CORPUSCULAR VOLUME 92.8 fL (81.0-99.0); MEAN PLATELET VOLUME 8.9 fL (7.9-10.8); MONOCYTES # (AUTO) 0.4 10^3/uL (0.0-1.0); MONOCYTES % (AUTO) 4.6 %; NEUTROPHILS # (AUTO) 4.7 10^3/uL (1.5-6.6); NEUTROPHILS % (AUTO) 55.1 %; PLT - PLATELET COUNT 329 10^3/uL (130-450); RED BLOOD COUNT 4.99 10^6/uL (4.20-5.40); RED CELL DISTRIBUTION WIDTH 12.2 % (12.0-15.0); WHITE BLOOD COUNT 8.5 x10^3/uL (4.8-10.8)
[2019-04-30 14:39] LABS: ALBUMIN 4.6 g/dL (3.2-5.5); ALBUMIN/GLOBULIN RATIO 1.5 (1.0-2.2); ALKALINE PHOSPHATASE 54 IU/L (42-121); ALT ALANINE AMINOTRANSFERASE 24 IU/L (10-60); AST ASPARTATE AMINOTRANSFERASE 21 IU/L (10-42); BILIRUBIN,TOTAL < 0.2 mg/dL (0.2-1.0); BUN - BLOOD UREA NITROGEN 13 mg/dL (6-20); CALCIUM 9.6 mg/dL (8.5-10.3); CARBON DIOXIDE - CO2 26 mmol/L (21-32); CHLORIDE 103 mmol/L (101-111); CREATININE 0.9 mg/dL (0.4-1.0); GFR - MDRD 70 (>89); GLUCOSE 91 mg/dL (70-100); LIPASE 28 U/L (22-51); SODIUM 140 mmol/L (135-145); TOTAL PROTEIN 7.7 g/dL (6.7-8.2)
[2019-04-30] MEDS ORDERED: DEXAMETHASONE 10 MG/ML VIAL PO STA (15:25)
[2019-04-30] MEDS ORDERED: CHERRY SYRUP 10 ML UDC PO ONE (15:25)
[2019-04-30] MEDS ORDERED: KETOROLAC 60 MG/2 ML VIAL IM STA (15:26)
--- NOTE | 2019-04-30 15:28 | ED Physician Documentation ---
PD HPI BACK PAIN - Stated complaint Stated Complaint: HIP/SIDE/ABD PX - Chief complaint Chief Complaint: Abd Pain - History obtained from History obtained from: Patient - History of Present Illness Timing - onset: Yesterday Timing - duration: Days (2) Timing - details: Gradual onset, Still present Location: Lower, Right Quality: Pain, Spasm, Sharp Associated symptoms: Numbness (similar to prior). 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 She states this is different than what she is had previously with abdominal pain events. She feels that the abdominal pain when she was having more related to back. She has had multiple operations on her back. 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 : Kidney stones HEENT: Chronic vision loss, Chronic hearing loss Psych: Depression, Anxiety, Panic attacks, Claustrophobia Musculoskeletal: Osteoarthritis, Fibromyalgia, Scoliosis, Chronic back pain, Other Derm: None - Past Surgical History Past Surgical History: Yes General: Other Ortho: Spine 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: section, Hysterectomy, Oophrectomy HEENT: Myringotomy (tubes), Tonsil/Adenoidectomy - Present Medications Home Medications: Ambulatory Orders Medication Instructions Recorded Confirmed Amitriptyline HCl 30 mg PO DAILY PM 12/07/17 12/13/17 oxyCODONE [Roxicodone] 5 mg PO Q4-6H PRN #20 tablet 02/05/18 Alprazolam [Xanax] 0.25 mg PO 05/31/18 Cyclobenzaprine [Flexeril] 10 mg PO TID PRN 05/31/18 05/31/18 HYDROcod/ACETAM 5/325 [[place] 5/325] 1 - 2 ea PO Q6H PRN #15 tablet 05/31/18 Oxycodone HCl/Acetaminophen 1 - 2 each PO Q6HR PRN #15 tablet 06/15/18 [Oxycodone-Acetaminophen 5-325] Phenazopyridine HCl [Pyridium] 200 mg PO TID PRN #6 tablet 11/04/18 Sulfamethox/Trimeth 800/160 1 each PO BID #14 tablet 11/04/18 [Bactrim Ds 800/160] Ketorolac [Toradol] 10 mg PO Q6H PRN #15 tablet 01/13/19 Oxycodone HCl/Acetaminophen 1 - 2 each PO Q6H PRN #14 tablet 04/30/19 [Percocet 5-325 mg Tablet] - Allergies Allergies/Adverse Reactions: Allergies Allergy/AdvReac Type Severity Reaction Status Date / Time morphine AdvReac Hives Verified 04/30/19 14:06 - Social History Does the pt smoke?: No Smoking Status: Never smoker Does the pt drink ETOH?: Yes Does the pt have substance abuse?: No - Immunizations Immunizations are current?: No Immunizations: TDAP >10years/unknown - POLST Patient has POLST: No PD ED PE NORMAL - Vitals Vital signs reviewed: Yes (hypertensive ) - General General: Alert and oriented X 3, Well developed/nourished, Other (appears to be in pain with accounting clerk tone and tears ) - HEENT HEENT: Atraumatic - Neck Neck: Supple, no meningeal sign, No bony TTP - Cardiac Cardiac: RRR, No murmur - Respiratory Respiratory: No respiratory distress, Clear bilaterally - Abdomen Abdomen: Normal bowel sounds, Soft, Non tender, Non distended, No organomegaly - Back Back: No CVA TTP, No spinal TTP, Other (There is a midline scar to the lumbar spine area. There is no central tenderness. There is tenderness to the paraspinous muscles on the right side extending into the sciatic notch. ) - Derm Derm: Normal color, Warm and dry, No rash - Extremities Extremities: No deformity, No edema - Neuro Neuro: Alert and oriented X 3, hall manager 2-12 intact, No motor deficit, No sensory deficit, Normal speech Eye Opening: Spontaneous Motor: Obeys Commands Verbal: Oriented GCS Score: 15 - Psych Psych: Normal mood, Normal affect Results - Vitals Vitals: Vital Signs - 24 hr 04/30/19 14:04 Temperature 35.9 C L Heart Rate 95 Respiratory 19 Rate Blood Pressure 138/99 H O2 Saturation 100 Oxygen O2 Source Room air - Labs Labs: Laboratory Tests 04/30/19 04/30/19 14:17 14:17 WBC 8.5 RBC 4.99 Hgb 15.7 Hct 46.3 MCV 92.8 MCH 31.5 H MCHC 33.9 RDW 12.2 Plt Count 329 MPV 8.9 Neut # (Auto) 4.7 Lymph # (Auto) 2.8 [place] # (Auto) 0.4 Eos # (Auto) 0.6 Baso # (Auto) 0.1 Absolute Nucleated RBC 0.00 Nucleated RBC % 0.0 Sodium 140 Potassium 3.9 Chloride 103 Carbon Dioxide 26 Anion Gap 11.0 BUN 13 Creatinine 0.9 Estimated GFR (MDRD) 70 L Glucose 91 Calcium 9.6 Total Bilirubin < 0.2 L AST 21 ALT 24 Alkaline Phosphatase 54 Total Protein 7.7 Albumin 4.6 Globulin 3.1 Albumin/Globulin Ratio 1.5 Lipase 28 PD MEDICAL DECISION MAKING - ED course Complexity details: reviewed results, re-evaluated patient, considered differential, d/w patient ED course: 39-year-old female with acute sciatic symptoms administered dexamethasone 10 mg orally and Toradol 60 [address] IM[address] We will place her on pain medication and muscle relaxant. Departure - Departure Disposition: 01 Home, Self Care Clinical Impression: Sciatica Qualifiers: Laterality: right Qualified Code(s): M54.31 - Sciatica, right side Condition: Stable Instructions: ED Sciatica Follow-Up: Brandi Adames DO [Primary Care Provider] - Prescriptions: Oxycodone HCl/Acetaminophen [Percocet 5-325 mg Tablet] 1 - 2 each PO Q6H PRN #14 tablet PRN Reason: pain Forms: Activity restrictions
== END 2019-04-30 15:49 | disposition home or self-care (01) ==
LOC: ED 13:49
DX: M54.31 Sciatica, right side (principal)
CPT/HCPCS: 36415; 80053; 83690; 85025; 96372; 99283; 99284; A9270

== ENCOUNTER 2019-08-25 10:00 | Emergency (ER) | payer MEDICAID ==
--- NOTE | 2019-08-25 11:04 | XRAY Report ---
Reason: Trauma Procedure Date: 08/25/2019 Accession Number: [id number] / [id number] Procedure: XR - Foot 3 View RT CPT Code: Final Report FULL RESULT: EXAM: RIGHT FOOT RADIOGRAPHY EXAM DATE: 08/25/2019 10:33 AM. CLINICAL HISTORY: Trauma. COMPARISON: None. TECHNIQUE: 3 views. FINDINGS: Bones: No fractures or bone lesions. Joints: No subluxations. Soft Tissues: Mild soft tissue swelling over the dorsum of the foot. IMPRESSION: No evidence for acute osseous injury. Mild soft tissue swelling. RADIA
[2019-08-25 11:37] VITALS: BP 127/88
--- NOTE | 2019-08-25 12:04 | ED Physician Documentation ---
PD HPI LOWER EXT INJURY - Stated complaint Stated Complaint: R FOOT INJ - Chief complaint Chief Complaint: Ext Problem - History obtained from History obtained from: Patient - History of Present Illness PD HPI LOW EXT INJURY LOCATION: Right, Foot Type of injury: Blunt / blow Where injury occurred: Home Timing - onset: How many weeks ago (3) Timing - duration: Weeks (3) Timing - details: Abrupt onset, Still present Improved by: Rest, Ice, Immobilization Worsened by: Moving, Palpating Associated symptoms: No: Weakness, Tingling, Swelling Similar symptoms before: Diagnosis (foot contusion) Recently seen: Not recently seen - Additional information Additional information: 39 y/o female stepped on something after thanksgiving and she has had pain in her foot since. This is worse now and is mostly over the dorsum of the foot and painful with wearing boots or shoes. 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: section, Hysterectomy, Oophrectomy HEENT: Myringotomy (tubes), Tonsil/Adenoidectomy - Present Medications Home Medications: Ambulatory Orders Medication Instructions Recorded Confirmed Amitriptyline HCl 30 mg PO DAILY PM 12/07/17 12/13/17 oxyCODONE [Roxicodone] 5 mg PO Q4-6H PRN #20 tablet 02/05/18 Alprazolam [Xanax] 0.25 mg PO 05/31/18 Cyclobenzaprine [Flexeril] 10 mg PO TID PRN 05/31/18 05/31/18 HYDROcod/ACETAM 5/325 [[place] 5/325] 1 - 2 ea PO Q6H PRN #15 tablet 05/31/18 Oxycodone HCl/Acetaminophen 1 - 2 each PO Q6HR PRN #15 tablet 06/15/18 [Oxycodone-Acetaminophen 5-325] Phenazopyridine HCl [Pyridium] 200 mg PO TID PRN #6 tablet 11/04/18 Sulfamethox/Trimeth 800/160 1 each PO BID #14 tablet 11/04/18 [Bactrim Ds 800/160] Ketorolac [Toradol] 10 mg PO Q6H PRN #15 tablet 01/13/19 Oxycodone HCl/Acetaminophen 1 - 2 each PO Q6H PRN #14 tablet 04/30/19 [Percocet 5-325 mg Tablet] - Allergies Allergies/Adverse Reactions: Allergies Allergy/AdvReac Type Severity Reaction Status Date / Time morphine AdvReac Hives Verified 08/25/19 10:14 - Social History Does the pt smoke?: No Smoking Status: Never smoker Does the pt drink ETOH?: Yes Does the pt have substance abuse?: No - Immunizations Immunizations are current?: No Immunizations: TDAP >10years/unknown - POLST Patient has POLST: No PD ED PE NORMAL - Vitals Vital signs reviewed: Yes (hypertensive ) - General General: Alert and oriented X 3, No acute distress, Well developed/nourished - HEENT HEENT: Atraumatic, PERRL, EOMI - Respiratory Respiratory: No respiratory distress - Derm Derm: Normal color, Warm and dry, No rash - Extremities Extremities: No deformity, No edema, Other (There is minimal tenderness to the dorsum of the right foot laterally. There is no siginifcant tendeness to the plantar fascia .) Results - Vitals Vitals: Vital Signs - 24 hr 08/25/19 08/25/19 10:13 11:36 Temperature 36.7 C Heart Rate 97 73 Respiratory 18 18 Rate Blood Pressure 147/81 H 127/88 H O2 Saturation 99 99 Oxygen O2 Source Room air - Rads (name of study) foot Radiology: Prelim report reviewed (Impression: No evidence for acute osseous injury. Mild soft tissue swelling.), EMP read indepedently, See rad report PD MEDICAL DECISION MAKING - ED course Complexity details: reviewed results, re-evaluated patient, considered differential, d/w patient ED course: 39-year-old female with an injury to her right foot has pain over the dorsum of the foot there is no evidence of a fracture she is placed into a postoperative shoe and this helps with the ambulation significantly. Departure - Departure Disposition: 01 Home, Self Care Clinical Impression: Contusion of foot Qualifiers: Encounter type: initial encounter Laterality: right Qualified Code(s): S90.31XA - Contusion of right foot, initial encounter Condition: Stable Instructions: ED Contusion Foot Follow-Up: Brandi Adames DO [Primary Care Provider] -
== END 2019-08-25 12:05 | disposition home or self-care (01) ==
LOC: ED 10:00
DX: S90.31XA Contusion of right foot, initial encounter (principal); W22.8XXA Striking against or struck by other objects, initial encounter; Y92.009 Unspecified place in unspecified non-institutional (private) residence as the place of occurrence of the external cause
CPT/HCPCS: 99282; 99283

== ENCOUNTER 2019-12-24 12:05 | Emergency (ER) | payer MEDICAID ==
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
[2019-12-24] MEDS ORDERED: ACETAMINOPHEN 325 MG TABLET PO STA (13:38)
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
[2019-12-24] MEDS ORDERED: AMPICILLIN/SULBACTAM 3 GM in SODIUM CHLORIDE 0.9% MINIBAG 100 ML IV STA (14:25)
[2019-12-24] MEDS ORDERED: DEXAMETHASONE 10 MG/ML VIAL IVP STA (14:25)
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
[2019-12-24 16:16] VITALS: BP 121/71
== END 2019-12-24 16:16 | disposition home or self-care (01) ==
LOC: ED 12:05
DX: S02.32XA Fracture of orbital floor, left side, initial encounter for closed fracture (principal); S02.832A Fracture of medial orbital wall, left side, initial encounter for closed fracture; Y04.2XXA Assault by strike against or bumped into by another person, initial encounter
CPT/HCPCS: 70450; 70486; 96365; 96375; 99284; A9270

== ENCOUNTER 2022-10-04 15:30 | Outpatient (CLI) | payer MEDICAID ==
--- NOTE | 2022-10-04 16:17 | SLEEP CARE CONSULTATION ---
Information from patient questionnaire entered by Nadine Kwan. I have reviewed and concur with the information entered by Nadine Kwan. This document represents the service I personally performed and the decisions made by me, Celina Romero ARNP. History of Present Illness Service Date and Time: 10/04/2022 1530 Reason for Visit: New patient Chief Complaint: reports: Insomnia, Unrefreshed sleep, Snoring, Fatigue Date of Onset: YRS Usual bedtime: 11PM Time it takes to fall asleep: MIN-HRS Snores at night: Yes Observed to quit breathing while asleep: No Sleeps alone due to snoring: No Number of times waking at night: 1-4 Reasons for waking at night: reports: Pain, Bathroom, Other (NOISE, TODDLER, has woke herself up screaming). denies: Choking, Gasping for air Toss, Turn, or Twitch while sleeping: Yes Recalls having dreams: Yes (some of the time) Usually gets out of bed at: 0645; [id number] Feels refreshed in the morning: No Morning headache: Yes (2 times a month; RESOLVES WITH IN A FEW HRS SOMETIMES LONGER ) Sleepy or fatigued during the day: Yes Ever fallen asleep while driving: No (drowsy driving with long drives; no accidents) Takes day naps: No Dreams during day naps: Yes Prior sleep studies: Yes Year and Where: [facility] Additional HPI information: I had the pleasure of seeing MARBELLA MORALES today regarding the possibility of her having a sleep disorder. Her current complaints are insomnia and fatigue. She states that she is tired all the time. She wakes up feeling tired. She has fibromyalgia and unclassified "inflammatory" issues and pain issues. She states that she can fall asleep quickly but sometimes "if brain will not shut off" she can be awake for hours more. She states she will wake up 1-4 times at night, she is a light sleeper. She is here to try to rule out other sleep issues affecting her sleep. - Parasomnia Symptoms Ever been unable to move upon waking from sleep: Yes (only happens with a rare nap) Walks in sleep: No Talks in sleep: Yes (screaming too) Ever acted out dreams in sleep: No Ever felt weak in the knees when startled or emotional: Yes (has not fallen to ground) Bothered by creepy, crawly, restless sensations in legs: No Problems with memory or concentration: Yes (both) Subjective Initial [place] Sleepiness Scale score: 4 (09/30/22) Past Medical History Past Medical History: reports: Hypertension, Claustrophobia, Arthritis, Fibromyalgia, Anxiety, Asthma, Other (Raynaud's) Social History 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 Patient is Single and lives in [place]. Have you smoked in the past 12 months: No Cigarettes per day (20/pack): 20 Years of smokin Quit date: 7YRS AGO Smoking Pack Years: 20.0 Alcohol use: No Caffeine use: Yes Caffeine amount and frequency: 1 COFFEE 2-3 DAYS A WEEK Family History Family history of sleep disordered breathing: Yes Family Hx Sleep Apnea: Father: Snoring Allergies and Home Medications Known drug allergies: Yes (MORPHINE, BUSPERONE,DILAUDID) Drug allergies reviewed: Yes Home medication list reviewed: Yes Allergy and home medication list: Medications: Amitriptyline Lisinopril Vicodin Cyclobenzaprine Promethazine Lidocaine patch, prn Cannabis, prn for sleep Review of Systems Weight gain over past 5 years: 30 Weight loss over past 5 years: 80 Cardiovascular: reports: high blood pressure Respiratory: reports: shortness of breath Gastrointestinal: reports: heartburn, difficulty swallowing Urinary: reports: frequency, urgency Neurological: reports: headaches, gait or balance problems. denies: head trauma Ear/Nose/Throat: reports: dry mouth/throat, wisdom teeth removed. denies: tonsillectomy Endocrine: reports: sluggishness, too hot or cold Musculoskeletal: reports: joint pain, neck pain, back pain, muscle pain or cramping Immunologic: reports: itching, allergies to food or environment Physical Exam Vital signs obtained and entered by: NADINE Osorio MA Blood Pressure: 122/68 (LEFT ARM) Cuff size: regular Heart Rate: 72 O2 Saturation: 98 Height: 5 ft 7 in Weight: 242 lb 9.6 oz Body Mass Index: 38.0 BMI Classification: Obese Neck circumference: 15.5 Mouth and throat: narrow oropharynx Soft palate: long Hard palate: normal Uvula: normal Uvula visualization: 50% Mallampati Class II Tongue: enlarged in size with teeth cisneros on lateral edges Tonsils: small Neck: normal w/o lymphadenopathy or thyromegaly Heart: regular rate and rhythm Lungs: clear bilaterally Impression and Plan 1. Suspected Obstructive Sleep Apnea-Hypopnea Syndrome, as suggested by a history of loud and irregular snoring, morning headache, unrefreshed sleep, cognitive impairment, and excessive daytime sleepiness. Narrow oropharynx and obesity are common predisposing factors for obstructive sleep apnea-hypopnea syndrome. I recommend proceeding to polysomnography to confirm the diagnosis and to assess severity. If the patient has significant sleep disordered breathing, a manual CPAP titration study will also be performed to find the optimal treatment pressure. I informed the patient of what the sleep studies involve and after some discussion, obtained agreement to proceed. The pathophysiology of obstructive sleep apnea-hypopnea syndrome was discussed with the patient and health risks of cardiovascular and cerebrovascular disease if not treated. Risks of drowsy driving discussed in detail and patient advised to avoid long distance driving and to harness puller at the first sign of drowsiness. Patient agreed to plan. * Schedule polysomnography * Avoid long distance driving or driving when feeling sleepy. * Avoid alcohol, sedative and muscle relaxant around bedtime. * Attempt to lose weight. * Review instructions provided by trained office staff on how to prepare for the sleep study. * Return for follow-up after sleep study completed. Counseling Topics: Weight loss health impact Visit Type: In Office Time Spent with Patient (minutes): 30 Provider Statement: I spent 100% of the Face to Face Visit with the patient with greater than 50% spent counseling the patient and coordination of care.
[2022-10-04 16:34] VITALS: BP 122/68
== END 2022-10-04 15:31 | disposition home or self-care (01) ==
LOC: SC 15:30
PROVIDERS: ATTEND Nurse Practitioner Family
DX: G47.10 Hypersomnia, unspecified (principal); R53.83 Other fatigue; R51.9 Headache, unspecified; R06.83 Snoring; G47.8 Other sleep disorders; I10 Essential (primary) hypertension; E66.9 Obesity, unspecified; Z68.38 Body mass index [BMI] 38.0-38.9, adult; Z87.891 Personal history of nicotine dependence
CPT/HCPCS: 99203; 99212

== ENCOUNTER 2022-11-03 08:24 | Outpatient (CLI) | payer MEDICAID | END 2022-11-03 08:25 | disposition home or self-care (01) | LOC: SC 08:24 | PROVIDERS: ATTEND Nurse Practitioner Family | DX: G47.10 Hypersomnia, unspecified (principal); R53.83 Other fatigue; R51.9 Headache, unspecified; R06.83 Snoring; G47.8 Other sleep disorders; I10 Essential (primary) hypertension; E66.9 Obesity, unspecified; Z68.37 Body mass index [BMI] 37.0-37.9, adult | CPT/HCPCS: 95806 ==

== ENCOUNTER 2022-12-09 08:29 | Outpatient (CLI) | payer MEDICAID ==
--- NOTE | 2022-12-09 08:48 | SLEEP CARE CONSULTATION ---
Information from patient questionnaire entered by Daily Kwan. I have reviewed and concur with the information entered by Daily Kwan. This document represents the service I personally performed and the decisions made by , Celina Romero ARNP. History of Present Illness Service Date and Time: 12/09/2022828 Initial [place] Sleepiness Scale score: 4 (09/30/22) Current [place] Sleepiness Scale score: 0 (12/09/22) Additional HPI information: MARBELLA MORALES returns for follow up and results of the recently performed home sleep study. The patient was informed of the following findings: No significant sleep disordered breathing with an average AHI of 3.0 and jannet oxygen saturation of 92%. Supine AHI minimally elevated at 5.1. Fair to poor study due to complete loss of airflow signal after 3 hours. I explained the pathophysiology behind obstructive sleep apnea. Patient does not have sleep apnea and was advised how weight gain could increase the risk of developing sleep apnea in the future. I strongly encouraged the patient to lose weight. Patient does not have significant sleep disordered breathing but has elevated AHI in supine position so advised positional therapy. Methods to achieve positional management therapy were discussed; such as, positioning with pillows, wearing a T-shirt with tennis balls sewn into the back or commercially available products. Patient does not drink alcohol. Patient was cautioned about risks of drowsy driving until sleepiness symptoms resolve. Patient denies drowsy driving. Sleep Study - Results Type of Sleep Study: Home sleep study (COMPLETED 11/03/22) Prior sleep studies: Yes Year and Where: [facility] Polysomnography/Home Sleep Study results: Physician Impression: The quality of the study is qdxr-on-dfts due to complete loss of airflow signal after 3 hours. The length of the study is adequate (> 240 minutes). Please also see the tabulated and graphic data. 1. No significant sleep disordered breathing, with an AHI of 3.0/hr and jannet SaO2 of 92%. During the study, the patient had 1 apnea (1 obstructive, 0 central, 0 mixed) and 9 hypopneas. The longest episode lasted 69.5 seconds. The few respiratory events occurred almost exclusively duri ng supine sleep (supine AHI was 5.1 and non-supine, 0.62). Allergies and Home Medications Known drug allergies: Yes (morphine) Drug allergies reviewed: Yes Home medication list reviewed: Yes (no changes) Allergy and home medication list: Allergies morphine Adverse Reaction (Verified 12/08/22 15:35) Hives Review of Systems Review of systems same as previous: Yes (no changes) Physical Exam Vital signs obtained and entered by: DAILY Osorio MA Blood Pressure: 126/72 (LEFT ARM) Cuff size: regular Heart Rate: 84 O2 Saturation: 98 Height: 5 ft 7 in Weight: 243 lb 12.8 oz Body Mass Index: 38.2 BMI Classification: Obese Impression and Plan 1. Suspected Obstructive Sleep Apnea-Hypopnea Syndrome, as suggested by a history of loud and irregular snoring, morning headache, unrefreshed sleep, cognitive impairment, and excessive daytime sleepiness. Patient's recently completed HST was fair to poor because we lost airflow signal 3 hours into the test. Because this is not a good quality representation, I recommend proceeding to polysomnography in the sleep lab to confirm the diagnosis and to assess severity. I obtained agreement to proceed. The pathophysiology of obstructive sleep apnea-hypopnea syndrome was discussed with the patient and health risks of cardiovascular and cerebrovascular disease if not treated. Risks of drowsy driving discussed in detail and patient advised to avoid long distance driving and to stick puller at the first sign of drowsiness. Patient agreed to plan. * Schedule polysomnography * Avoid long distance driving or driving when feeling sleepy. * Avoid alcohol, sedative and muscle relaxant around bedtime. * Attempt to lose weight. * Review instructions provided by trained office staff on how to prepare for the sleep study. * Return for follow-up after sleep study completed. Visit Type: In Office Time Spent with Patient (minutes): 10 Provider Statement: I spent 100% of the Face to Face Visit with the patient with greater than 50% spent counseling the patient and coordination of care.
[2022-12-09 08:49] VITALS: BP 126/72
== END 2022-12-09 08:30 | disposition home or self-care (01) ==
LOC: SC 08:29
PROVIDERS: ATTEND Nurse Practitioner Family
DX: G47.10 Hypersomnia, unspecified (principal); R51.9 Headache, unspecified; R06.83 Snoring; G47.8 Other sleep disorders; I10 Essential (primary) hypertension; E66.9 Obesity, unspecified; Z68.38 Body mass index [BMI] 38.0-38.9, adult
CPT/HCPCS: 99212

== ENCOUNTER 2023-01-27 20:41 | Outpatient (CLI) | payer MEDICAID | END 2023-01-27 20:42 | disposition home or self-care (01) | LOC: SC 20:41 | PROVIDERS: ATTEND Nurse Practitioner Family | DX: G47.10 Hypersomnia, unspecified (principal); R51.9 Headache, unspecified; R06.83 Snoring; G47.8 Other sleep disorders; I10 Essential (primary) hypertension | CPT/HCPCS: 95810 ==

== ENCOUNTER 2023-03-17 08:25 | Outpatient (CLI) | payer MEDICAID ==
--- NOTE | 2023-03-17 08:47 | Sleep Patient Instructions ---
Sleep Center Visit Summary - Patient Visit Information Reason for Visit: Sleep study followup - Patient Instructions Additional Instructions: Your sleep study today was negative for significant sleep disordered breathing. However, you did have elevated respiratory episodes when sleeping on your back. You should avoid sleeping on your back to control these respiratory episodes. You were found to have episodes of snoring. There are different ways to control snoring including weight loss, oral devices made by a dentist or surgical options through ENT specialist. You should not use oral devices that do not fit properly because they can affect your bite. You should also check insurance coverage of oral devices for snoring because they may not be cover well. You may obtain a referral to an ENT specialist through your primary provider Follow-up as needed. - Clinic Information Contact: [facility] [address] [place] [address] [email or web address] T: [phone]
--- NOTE | 2023-03-17 08:51 | SLEEP CARE CONSULTATION ---
Information from patient questionnaire entered by Daily Kwan. I have reviewed and concur with the information entered by Daily Kwan. This document represents the service I personally performed and the decisions made by , Celina Romero ARNP. History of Present Illness Service Date and Time: 03/17/2023824 Initial [place] Sleepiness Scale score: 4 (09/30/22) Current [place] Sleepiness Scale score: 3 (03/17/23) Additional HPI information: MARBELLA MORALES returns for follow up and results of the recently performed polysomnography. The patient was informed of the following findings: No significant sleep disordered breathing with an average AHI of 2.5 and jannet oxygen saturation of 92%. Slightly elevated supine AHI at 5.2. I explained the pathophysiology behind obstructive sleep apnea. Patient does not have sleep apnea and was advised how weight gain could increase the risk of developing sleep apnea in the future. I strongly encouraged the patient to lose weight. Patient does not have significant sleep disordered breathing but has elevated AHI in supine position so advised positional therapy. Methods to achieve positional management therapy were discussed; such as, positioning with pillows, wearing a T-shirt with tennis balls sewn into the back or commercially available products. Patient has Light to loud snoring. Snoring can be reduced by weight loss. Weight loss is best achieved with diet consult. Patient instructed to contact PCP for referral. Snoring can also be treated with an oral appliance from a dentist. Advised to check insurance coverage. In addition, an ENT evaluation can be do to see if other treatment is indicated. Patient does not drink alcohol. Patient was cautioned about risks of drowsy driving until sleepiness symptoms resolve. Patient denies drowsy driving. Sleep Study - Results Type of Sleep Study: Home sleep study (COMPLETED 01/27/23) Prior sleep studies: Yes Year and Where: [facility]/Home Sleep Study results: IMPRESSION: The quality of the study is good. The patient had normal sleep efficiency. The sleep architecture was normal as well. Respiratory monitoring showed no significant sleep disordered breathing (AHI = 2.5) or hypoxia (jannet oxygen saturation of 92%). The few respiratory events occurred mainly during supine REM sleep (supine AHI = 5.2; non-supine = 0.55). Snore was light to loud in intensity. There was no significant periodic leg movement of sleep. Cardiac rhythm was normal sinus rhythm without significant arrhythmia. No abnormal behavior (parasomnia) observed during the night. Allergies and Home Medications Known drug allergies: Yes (morphine, buspirone, dilaudid) Drug allergies reviewed: Yes Home medication list reviewed: Yes (no changes) Allergy and home medication list: Allergies morphine Adverse Reaction (Verified 03/16/23 08:48) Hives Review of Systems Review of systems same as previous: Yes (no changes) Physical Exam Vital signs obtained and entered by: DAILY Osorio MA Blood Pressure: 128/76 (LEFT ARM) Cuff size: regular Heart Rate: 89 O2 Saturation: 99 Height: 5 ft 7 in Weight: 248 lb Body Mass Index: 38.8 BMI Classification: Obese Impression and Plan 1. Snoring but no significant sleep disordered breathing. However, she did have a slightly elevated supine AHI and was advised to avoid supine sleep. Patient advised that often weight loss will reduce snoring as well as apnea risk. An oral appliance can also be used for snoring. This would require a dental consultation. Patient cautioned not to use other online appliances as can cause bite issues. Patient is advised to check if insurance will cover. An ENT consult can also be helpful to determine if any other treatment is an option. 2. Obesity, unspecified. Currently patients BMI is 38.8. Obesity increases the risk of apnea and overall health risks, especially cardiovascular and diabetes. Thus patient is advised to lose weight. * Attempt to lose weight * Avoid alcohol consumption near bedtime * The patient is cautioned about driving until sleepiness is completely resolved. * Return as needed for follow up. Counseling Topics: Sleeping position, Weight loss health impact Visit Type: In Office Time Spent with Patient (minutes): 13 Provider Statement: I spent 100% of the Face to Face Visit with the patient with greater than 50% spent counseling the patient and coordination of care.
[2023-03-17 08:52] VITALS: BP 128/76
== END 2023-03-17 08:26 | disposition home or self-care (01) ==
LOC: SC 08:25
PROVIDERS: ATTEND Nurse Practitioner Family
DX: R06.83 Snoring (principal); E66.9 Obesity, unspecified; Z68.38 Body mass index [BMI] 38.0-38.9, adult
CPT/HCPCS: 99212

== ENCOUNTER 2023-05-09 16:50 | Emergency (ER) | payer MEDICAID ==
--- NOTE | 2023-05-09 17:19 | ED Physician Documentation ---
PD HPI LOWER EXT INJURY - Stated complaint Stated Complaint: INSECT BITE - Chief complaint Chief Complaint: Wound - History obtained from History obtained from: Patient - Additional information Additional information: Patient is a 43-year-old female presenting for evaluation of insect bite to her left foot that occurred on Monday as she was at the [facility]. She is unsure of what bit her but felt to go through her socks. It has been throbbing and itchy since. She has tried topical hydrocortisone and Benadryl without improvement. She has noticed increased redness and swelling to the area. She is not diabetic. 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: Endometriosis, Miscarriage(s) : Kidney stones HEENT: Chronic vision loss, Chronic hearing loss Psych: Depression, Anxiety, Panic attacks, Claustrophobia Musculoskeletal: Osteoarthritis, Fibromyalgia, Scoliosis, Chronic back pain, Other Derm: None - Past Surgical History Past Surgical History: Yes General: Other Ortho: Spine surgery /TRANSPORT ASSISTANT: section, Hysterectomy, Oophrectomy HEENT: Myringotomy (tubes), Tonsil/Adenoidectomy - Present Medications Home Medications: Ambulatory Orders Medication Instructions Recorded Confirmed Amitriptyline HCl 50 mg PO DAILY PM 12/07/17 05/09/23 lisinopriL [Lisinopril] 10 mg ORAL DAILY 10/04/22 05/09/23 Albuterol Sulf [Ventolin Hfa 1 - 2 puffs INH Q4HR PRN 05/09/23 05/09/23 Inhaler] Cyclobenzaprine [Flexeril] 10 mg PO TID PRN 05/09/23 05/09/23 HYDROcod/ACET 5/325 Prepack 4 1 - 2 tab ORAL DAILY PRN 05/09/23 05/09/23 [NORCO 5/325 Prepack 4] Melatonin 3 mg PO HS 05/09/23 05/09/23 cephALEXin [Keflex] 500 mg PO Q6H #28 cap 05/09/23 - Allergies Allergies/Adverse Reactions: Allergies Allergy/AdvReac Type Severity Reaction Status Date / Time hydromorphone [From Dilaudid] AdvReac Unknown Verified 05/09/23 16:54 morphine AdvReac Hives Verified 05/09/23 16:54 - Social History Does the pt smoke?: No Smoking Status: Never smoker Does the pt drink ETOH?: No Does the pt have substance abuse?: No - Immunizations Immunizations are current?: Yes Immunizations: TDAP >10years/unknown - POLST Patient has POLST: No PD ED PE NORMAL - General General: Alert and oriented X 3, No acute distress, Well developed/nourished - HEENT HEENT: Atraumatic - Neck Neck: Supple, no meningeal sign - Cardiac Cardiac: Strong equal pulses - Respiratory Respiratory: No respiratory distress - Derm Derm: Other (1.5 cm area of raised erythema to dorsum of left foot with faint surrounding erythema, No fluctuance, no lymphangitic streaking, warmth to the area) - Extremities Extremities: Normal ROM s pain - Neuro Neuro: No motor deficit, No sensory deficit Results - Vitals Vitals: Vital Signs - 24 hr 05/09/23 05/09/23 16:54 17:36 Temperature 36.5 C 36.5 C Heart Rate 93 78 Respiratory 16 16 Rate Blood Pressure 134/83 H 125/76 O2 Saturation 98 99 Oxygen O2 Source Room air PD Medical Decision Making - ED course ED course: Patient presenting for evaluation of insect bite or sting to the left foot. This occurred almost 4 days ago. She does have an area of erythema and swelling with no signs of abscess. No lymphangitic streaking. Concern for developing cellulitis given duration of symptoms. No purulence. Discussed plan for trial of cephalexin which patient is agreeable to. Patient counseled on concerning symptoms to return for. Departure - Departure Disposition: 01 Home, Self Care Clinical Impression: Cellulitis of left foot, Insect bite of left foot Condition: Stable Instructions: ED Infec Skin Cellulitis Prescriptions: cephALEXin [Keflex] 500 mg PO Q6H #28 cap Comments: I am starting you on an antibiotic for a skin infection. [facility] [place]. Please return to the emergency department if you notice worsening redness or swelling. Continue with Benadryl as needed for itching. Forms: PCP List Discharge Date/Time: 05/09/23 17:36
--- OUTSIDE RECORDS SUMMARY | 2023-05-09 17:36 | EXTERNAL MEDICAL SUMMARY RPT | Continuity of Care Document ---
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 Name Role Phone Luis Sunshine Unavailable Unavailable Allergies and Intolerances date description facility reaction severity (no date) [facility] (no reaction) (no se verity) Medications date description facility 2023-02-24 00:00 Albuterol Sulfate [facility] 2023-03-16 00:00 Hydrocodone-Acetaminophen [facility] 2023-04-21 00:00 Hydrocodone-Acetaminophen [facility] 2023-05-05 00[facility] Hospital Problems date description facility 2023-05-05 10:28 [facility]23-05-05 [facility]:03 [facility] Results/Labs test date facility value unit notes Social History date description facility 2023-02-24 00:00 Ex-smoker (finding) [facility] 2023-05-05 00:00 Ex-smoker (finding) [facility] Vital Signs date measurement value units 2023-02-24 00:00 BMI 38.8 kg/m2 2023-02-24 00:00 BP_diastolic 82 mmHg 2023-02-24 00:00 BP_systolic 130 mmHg 2023-02-24 00:00 heart_rate 69 /min 2023-02-24 00:00 height_metric 170.18 cm 2023-02-24 00:00 height_standard 67 in 2023-02-24 00:00 o2_saturation 100 % 2023-02-24 00:00 temperature_metric 35.78 C 2023-02-24 00:00 temperature_standard 96.4 F 2023-02-24 00:00 weight_metric 112.49 kg 2023-02-24 00:00 weight_standard 248 lb 2023-05-05 00:00 BMI 39.3 kg/m2 2023-05-05 00:00 BP_diastolic 74 mmHg 2023-05-05 00:00 BP_systolic 126 mmHg 2023-05-05 00:00 heart_rate 66 /min 2023-05-05 00:00 height_metric 170.18 cm 2023-05-05 00:00 height_standard 67 in 2023-05-05 00:00 o2_saturation 99 % 2023-05-05 00:00 temperature_metric 37.06 C 2023-05-05 00:00 temperature_standard 98.7 F 2023-05-05 00:00 weight_metric 113.96 kg 2023-05-05 00:00 weight_standard 251.24 lb
[2023-05-09 17:42] VITALS: BP 125/76; O2SAT 99
== END 2023-05-09 17:36 | disposition home or self-care (01) ==
LOC: ED 16:50
DX: S90.862A Insect bite (nonvenomous), left foot, initial encounter (principal); L03.116 Cellulitis of left lower limb; W57.XXXA Bitten or stung by nonvenomous insect and other nonvenomous arthropods, initial encounter; I10 Essential (primary) hypertension
CPT/HCPCS: 99282; 99283